=== PATIENT | male | born 1975 | race Caucasian/White ===

== ENCOUNTER 2022-09-21 11:25 | Outpatient (REF) | payer BC, SELFPAY ==
[2022-09-21 13:28] LABS: Alanine Aminotransferase 54 U/L (0-40); Albumin Level 4.6 g/dL (3.5-5.0); Alkaline Phosphatase 160 U/L (39-117); Amylase 29 U/L (28-100); Anion Gap 14 (12-20); Aspartate Amino Transferase 178 U/L (5-37); Bilirubin Total 2.6 mg/dL (0.0-1.0); Blood Urea Nitrogen 5 mg/dL (9-16); Calcium 9.6 mg/dL (8.4-10.2); Carbon Dioxide 29 mmol/L (22-29); Chloride 98 mmol/L (96-108); Estimated Glomerular Filt Rate > 60; Gamma Glutamyl Transpeptidase 1777 U/L (11-51); Glucose Random 104 mg/dL (60-115); Lipase 26 U/L (8-78); Magnesium 1.5 mg/dL (1.6-2.6); Potassium 4.1 mmol/L (3.3-5.1); Sodium 137 mmol/L (135-145)
[2022-09-27 16:38] LABS: Vitamin B1 <6 nmol/L (8-30)
== END 2022-09-21 11:26 | disposition home or self-care (01) ==
LOC: HO.MANLDS 11:25
PROVIDERS: Visit Provider Physician Assistant
DX: F10.20 Alcohol dependence, uncomplicated (principal)
CPT/HCPCS: 36415; 80053; 82150; 82977; 83690; 83735; 84425

== ENCOUNTER 2022-10-15 12:04 | Outpatient (REF) | payer BC, SELFPAY ==
[2022-10-19 23:00] LABS: Testosterone, Free 83.2 pg/mL (35.0-155.0); Testosterone, Total 504 ng/dL (250-1100)
== END 2022-10-15 12:05 | disposition home or self-care (01) ==
LOC: HO.MANLDS 12:04
PROVIDERS: Visit Provider Physician Assistant
DX: F52.21 Male erectile disorder (principal)
CPT/HCPCS: 36415; 84402; 84403

== ENCOUNTER 2023-09-01 17:03 | Inpatient (IN) | payer BC, SELFPAY ==
--- NOTE | ~2023-09-01 | US_ITS ---
US ABDOMEN LIMITED HISTORY: Ascites, ascites check for paracentesis. COMPARISON: Abdomen ultrasound 11/30/2023. TECHNIQUE: Grayscale ultrasound imaging of the abdomen was performed in all 4 quadrants. FINDINGS: Only a small amount of hypoechoic to anechoic ascites is evident within the peritoneal cavity, far too small to be considered safe for paracentesis. Estimate less than 1 L. US/US abdomen limited pre post IMPRESSION: Insufficient amount of ascites for safe paracentesis. Estimated last than 1 L. Paracentesis will be postponed until there is adequate amount of ascites for safe a procedure.
--- NOTE | ~2023-09-01 | US_ITS ---
Examination: Chest x-ray and ultrasound abdomen. CLINICAL INDICATION: August obstruction. Cough. COMPARISON: Chest 09/01/2023. TECHNIQUE: Chest one view. Routine limited grayscale imaging of right upper quadrant was performed. FINDINGS: Chest: There is right basilar patchy consolidation/atelectasis. There is bandlike atelectasis in left midlung and lower lobe. Heart size is normal. Pulmonary vasculature is normal. No gross bony abnormality seen. Limited abdomen ultrasound: Pancreas: Visualized pancreatic body is homogeneous echotexture. Rest the pancreas is obscured by or lying gas. Liver: Liver is echogenic, heterogeneous and difficult to penetrate. No large lesion seen. Liver is is enlarged measuring 17 cm. On Doppler exam there is hepatopedal flow seen in portal vein hepatic vein is patent. There is small amount ascites. Gallbladder: There is echogenic bile with mild wall thickening measuring 6 mm. There is minimal free fluid adjacent to the gallbladder. CBD: CBD measures 0.3 cm. Right kidney measures 12.3 cm. US/US abdomen limited IMPRESSION: Echogenic bile with mild wall thickening and adjacent free fluid/ascites. Heterogeneous echogenic liver difficult to penetrate but no obvious focal lesion seen. There is small amount of free fluid in the right upper quadrant. Hepatopedal flow seen in portal vein. Right lower lobe consolidation/atelectasis. There is platelike atelectasis in the lingula and left lower lobe.
--- NOTE | ~2023-09-01 | CT_ITS ---
EXAMINATION: CT ABDOMEN AND PELVIS WITH CONTRAST CLINICAL INFORMATION: abd distension, jaundice, RUQ pain, etoh use dx COMPARISON: None. TECHNIQUE: Multidetector volumetric imaging was performed from the superior aspect of the liver through the pubic symphysis following administration of 85 mL Omnipaque 300 intravenous contrast. Sagittal and coronal reformatted images were obtained on the technologist workstation.. This CT examination was performed using dose optimization techniques as appropriate, variously including the following: *Automated exposure control *Adjustment of mA and/or kV according to patient size (this includes techniques or standardized protocols for targeted exams where dose is matched to indication/reason for exam; i.e. extremities or head) *Use of iterative reconstruction technique DLP: 1528 mGy-cm FINDINGS: LUNG BASES: Patchy airspace disease in the right greater than left lung bases. Atelectasis would be possible although infectious etiology could have this appearance. Clinical correlation would be suggested. PERITONEAL SPACE: Small volume of abdominal ascites LIVER, GALLBLADDER, AND BILIARY TREE: Enlarged liver with a marked areas of fatty infiltration admixed with areas of probable confluent scarring. I do not appreciate any definitive mass lesion superimposed on these more chronic changes. No biliary ductal dilatation. The gallbladder is unremarkable with no evidence of radiopaque gallstones, gallbladder wall thickening, or obvious pericholecystic inflammatory changes. PANCREAS: Unremarkable. SPLEEN: Unremarkable. ADRENAL GLANDS: Unremarkable. KIDNEYS AND URETERS: The kidneys are normal in size, shape, and attenuation. No hydronephrosis, hydroureter, or perinephric stranding. Tiny nonobstructing intrarenal calculi on the left. Subcentimeter low-attenuation probable cysts bilaterally too small to evaluate further. BLADDER: Decompressed GASTROINTESTINAL TRACT: The small and large bowel are unremarkable. The appendix is is not able to be delineated.. ABDOMINAL WALL: No significant hernia is appreciated. LYMPHOVASCULAR STRUCTURES: No lymphadenopathy. The aorta is unremarkable. PELVIC VISCERA: Unremarkable. OSSEOUS STRUCTURES: Unremarkable. CT/CT abdomen pelvis w IV con IMPRESSION: Chronic appearing changes as described above. I do not appreciate any acute intra-abdominal process. Patchy airspace disease in the right greater than left lung bases could be seen in the setting of atelectasis or infectious etiology.
--- NOTE | ~2023-09-01 | CT_ITS ---
EXAMINATION: CT HEAD WITHOUT CONTRAST CLINICAL INFORMATION: Confusion. COMPARISON: None available. TECHNIQUE: Contiguous axial imaging was performed from the skull base to vertex without intravenous administration of contrast. This CT examination was performed using dose optimization techniques as appropriate, variously including the following: *Automated exposure control *Adjustment of mA and/or kV according to patient size (this includes techniques or standardized protocols for targeted exams where dose is matched to indication/reason for exam; i.e. extremities or head) *Use of iterative reconstruction technique DLP: 1528 mGy-cm FINDINGS: There is no acute intra-axial, extra-axial bleed, masses or midline shift. There is no acute infarction in evolution. There is no edema. The rice to white matter differentiation is maintained normal. The lateral ventricles are symmetrical in size and configuration and appears normal. Bone windows reveal no calvarial abnormality. There is no soft tissue abnormality. Bilateral paranasal sinuses and mastoid air cells are well-aerated. CT/CT head/brain wo IV con IMPRESSION: No acute intracranial process seen.
--- NOTE | ~2023-09-01 | XR_ITS ---
EXAMINATION: XR CHEST CLINICAL INFORMATION: Patchy opacities COMPARISON: CT abdomen from 09/01/2023 TECHNIQUE: Frontal view of the chest was obtained. FINDINGS: Right lung base patchy consolidative opacities may reflect atelectasis versus evolving infectious/inflammatory etiology. No pneumothorax. Trachea is midline. Cardiac mediastinal silhouette is not enlarged. No large pleural effusion. Osseous structures are intact. Soft tissues are unremarkable. XR/XR chest 1V IMPRESSION: Right lung base patchy consolidative opacities may reflect atelectasis versus evolving infectious/inflammatory etiology.
[2023-09-01 17:36] VITALS: BP 119/74; BP 122/84; PULSE 118; RESP 20; TEMP 36.9; O2SAT 93; O2SAT 98; BMI 27.9
--- NOTE | 2023-09-01 17:54 | ED.GENADULT ---
HPI - General Adult General Chief complaint: Abdominal Pain Stated complaint: JAUNDICE DISTENTION & KNOWN HERNIA CONSTIPATION Time Seen by Provider: 09/01/23 17:54 Source: patient, family and RN notes reviewed Mode of arrival: ambulatory Limitations: no limitations History of Present Illness HPI narrative: This is a 47-year-old male, with a history of known umbilical hernia, alcohol use disorder, and diverticulitis, presenting to the emergency department, accompanied by , for evaluation of abdominal pain x2 weeks, increased confusion, and abdominal distention over the last 5 days. states that she noticed that he had increased yellowing of his eyes over the last 3 days. Reports that he has seemed more confused starting today. He states that he has not had a bowel movement in the last 5 days. Patient does admit that he drinks alcohol daily. States that he drinks approximately half a pt of hard liquor every day, which he has been doing all of my life . He reports history of alcohol withdrawal, no history of alcohol withdrawal seizures. He has never had treatment for alcohol use, but is interested in seeking help at this time. He is not on blood thinners, no recent head trauma or falls. Denies any fevers, chills, chest pain, shortness of breath. He states that he has vomited however states that he vomits typically once a day. Denies any bloody or black stool. No other complaints or concerns at this time. MD complaint: Abdominal pain, jaundice, confusion Onset (ago): day(s) Relieving factors: none Exacerbating factors: none Associated symptoms: confusion and nausea/vomiting Treatments prior to arrival: none Related Data Previous Rx's Medication Instructions Recorded flu vac qv 2020(18yr up)rc(PF) 180 0.5 ml IM ONCE 1 day #0.5 mL 06/15/21 mcg(45 mcgx4)/0.5 mL IM syringe metoprolol succinate 25 mg 25 mg PO DAILY #90 tabs 02/28/23 tablet,extended release 24 hr Allergies Allergy/AdvReac Type Severity Reaction Status Date / Time No Known Allergies Allergy Verified 05/03/23 13:15 Review of Systems Review of Systems: Yes all other systems are reviewed and are negative Constitutional: Constitutional: Reports as per [facility] Past Medical History Medical History (Updated 09/01/23 @ 21:00 by FABIOLA De Santiago) Lumbar radiculopathy Surgical History (Updated 05/03/23 @ 13:15 by Hilda Mendieta) History of left knee surgery History of back surgery Family History Family History (System 05/03/23 @ 13:15 by Hilda Mendieta) Father No problems noted. Mother No problems noted. Brother No problems noted. Sister No problems noted. Social History Social History (System 05/03/23 @ 13:15 by Hilda Mendieta) Advance Directives: No Advance Directives Information Provided: No Physical Exam ED Vital Signs: Vital Signs - 24 hr 09/01/23 17:36 09/01/23 18:40 Temperature 98.5 F 98.5 F Pulse Rate 118 H 120 H Respiratory Rate 20 22 H Blood Pressure 119/74 Pulse Oximetry 93 94 Oxygen Delivery Method Room Air Nasal Cannula Oxygen Flow Rate 2 BMI result Body Mass Index 27.9 Const General: cooperative, comfortable and no acute distress Orientation/consciousness: patient oriented x3 Limitations: no limitations HENMT Head: Yes normal to inspection, Yes normocephalic and Yes atraumatic Ears: hearing grossly normal bilaterally General nose exam: Normal external nose present Face and sinus: Yes normal facial exam Mouth: Normal oral and palatal mucosa present, oropharynx normal and moist mucous membranes Throat: Yes posterior oropharynx normal Eyes Other: Sclera icterus General: appearance normal, both eyes and all related structures Eyelids: Yes eyelids normal Conjunctivae: conjunctivae normal Sclerae: sclerae normal Pupils: Equal, round and reactive pupils present EOM: EOMs intact bilaterally Neck Neck: Yes normal visual inspection, Yes full ROM and Yes no lymphadenopathy Lymphatic: no lymphadenopathy noted Chest Chest palpation & inspection: normal inspection of the chest Resp Effort & Inspection: normal respiratory effort and able to speak in complete sentences Auscultation: clear to auscultation bilaterally, no crackles, no rales, no rhonchi and no wheezes Cardio Rate: regular rate Rhythm: regular rhythm Heart sounds: S1 normal heart sound present and S2 normal heart sound present GI Other: Abdomen is distended, and firm, hypoactive bowel sounds present, no visible hernia present. Tender in the right upper quadrant Inspection: Yes normal to inspection and Yes distended Skin General skin exam: no rashes or lesions noted Trauma: no lacerations or abrasions Wounds: no wounds Neuro Other: No upper or lower asterixis General: patient oriented x3 and moves all extremities Cranial nerves: Yes Equal, round and reactive pupils present Extrem General: Yes normal to inspection Right upper extremity: normal to inspection Left upper extremity: normal to inspection Right lower extremity: normal to inspection Left lower extremity: normal to inspection Course Reevaluation(s) Reevaluation #1: Patient remains comfortable and stable however chemistry returns, significant for total bili of 8.9, direct bili 7.2, AST 176, as well as alk-phos elevation at 2:51 a.m. and ammonia at 66. Findings concerning for alcoholic hepatitis, will administer lactulose. Ethyl alcohol 408, will start IV phenobarbital prevent alcoholic withdrawal. Pending CT head and CT abdomen. Time: 19:56 Reevaluation #2: CT head revealing no acute intracranial process. CT of the abdomen shows a chronic appearing changes including an enlarged liver with marked areas of fatty infiltration with areas of probable confluence scarring. No appreciable definitive mass lesion. Gallbladder is unremarkable with no evidence of radiopaque gallstones, gallbladder thickening or pericholecystic inflammatory changes. Discussed case with Dr. Ferrell transfer of care initiated as patient needs to be admitted for acute alcoholic hepatitis. Time: 20:51 Medications Administered Discontinued Medications Generic Name Dose Route Start Last Admin Trade Name Freq PRN Reason Stop Dose Admin Thiamine HCl 200 mg/ Sodium 102 mls @ 204 mls/hr 09/01/23 19:29 09/01/23 20:04 Chloride IV 09/01/23 19:58 204 mls/hr ONCE ONE Administration Iohexol 100 ml 09/01/23 19:33 09/01/23 19:35 Iohexol 350 Mg/Ml 100 Ml Infus..Btl IV 09/01/23 19:34 85 ml ONCE ONE Administration Lactulose 20 gm 09/01/23 19:32 09/01/23 20:07 Lactulose 20 Gm/30 Ml Solution PO 09/01/23 19:33 20 gm ONCE ONE Administration Medical Decision Making Medical Decision Making MDM Narrative: This is a 47-year-old male, with a history of alcohol use disorder, known umbilical hernia, and htn, presenting to the emergency department with complaints of abdominal pain times 2 weeks, worsening over the last day. He also appears to have worsening jaundice starting today. states that patient has been increasingly confused. He drinks alcohol daily, approximates half a pt per day. On arrival, tachycardic 118 beats per minute, all other vital signs within normal limits. Patient is afebrile, neurologically intact, no UE or LE asterixis. He is alert and oriented x4. Abdomen is distended and firm, with tenderness palpation in the epigastrium and right upper quadrant. Differential diagnoses include: alcoholic hepatitis, cholecystitis, cholangitis, hepatic encephalopathy, hepatitis, portal vein thrombosis. plan: labs, UA, CT abd & pelvis w/ contrast Differential Diagnosis Differential Diagnoses: The differential diagnosis associated with the presentation includes See above Admission/Observation Consideration of admission/observation: Escalation of care including admission/observation considered Consult Healthcare Provider Management of the patient was discussed with: Hospitalist Dr. Ferrell Lab Data MDM Lab Attestation statement: I reviewed the patient's lab results. Slight leukocytosis noted at 11.3, normocytic anemia noted with a hemoglobin and hematocrit at 11.8/32.7, prolonged coags noted, creatinine not indicative of JEAN MARIE, total bili 8.9, direct bili 7.2, AST 176, alk phos 251, ammonia 66, albumin 2.9. Ethyl alcohol critically high at 408. 09/01/23 18:37 09/01/23 18:37 Labs: Lab Results 09/01/23 09/01/23 Range/Units 18:37 20:10 WBC 11.3 H (4.8-10.8) X10*3/uL RBC 3.36 L (4.60-5.80) X10*6/uL Hgb 11.8 L (14.0-18.0) g/dl Hct 32.7 L (42.0-52.0) % MCV 97.3 (80.0-98.0) fL MCH 35.1 H (27.0-33.0) pg MCHC 36.1 H (31.0-36.0) g/dl RDW 15.9 (11.0-16.0) % Plt Count 179 (160-400) X10*3/uL MPV 11.9 (9.4-12.4) fL Immature Gran % (Auto) 0.5 H (0.0-0.4) % Neut % (Auto) 64.3 (45-73) % Lymph % (Auto) 19.9 L (20-40) % [place] % (Auto) 14.3 H (2-11) % Eos % (Auto) 0.3 (0-4) % Baso % (Auto) 0.7 (0-2) % Lymph # (Auto) 2.3 (1.2-4.9) X10*3/uL [place] # (Auto) 1.6 H (0.1-1.2) X10*3/uL Eos # (Auto) 0.0 (0.0-0.4) X10*3/uL Baso # (Auto) 0.1 (0.0-0.2) X10*3/uL Abs Immat Gran (auto) 0.06 H (0.00-0.03) X10*3/uL Absolute Neuts (auto) 7.3 (2.0-8.3) x10*3/uL Absolute Nucleated RBC 0.000 (0.0-0.012) X10*3/uL Nucleated RBC % (auto) 0.0 (0.0-0.2) /100WBC Smear Tech's Comments VERIFIED PT 19.0 H (11.1-13.3) SEC INR 1.6 H (0.9-1.1) Sodium 136 (135-145) mmol/L Potassium 3.5 (3.3-5.1) mmol/L Chloride 92 L (96-108) mmol/L Carbon Dioxide 28 (22-29) mmol/L Anion Gap 20 (12-20) BUN 3 L (9-16) mg/dL Creatinine 0.57 (0.5-1.4) mg/dL Estim Creat Clear Calc 182.9 Estimated GFR > 60 Random Glucose 107 (60-115) mg/dL Calcium 7.9 L D (8.4-10.2) mg/dL Magnesium 2.3 (1.6-2.6) mg/dL Total Bilirubin 8.9 H (0.0-1.0) mg/dL Direct Bilirubin 7.2 H (0.0-0.5) mg/dL AST 176 H (5-37) U/L ALT 22 (0-40) U/L Alkaline Phosphatase 251 H (39-117) U/L Ammonia 66 H (13-55) umol/L Total Protein 7.2 (6.5-8.0) g/dL Albumin 2.9 L (3.5-5.0) g/dL Lipase 24 (8-78) U/L Ethyl Alcohol 408 H* mg/dL Independent Interpretation I performed an independent interpretation of an: CT Scan Radiology Impression Discussion of test interpretation with radiology: I have reviewed the radiologist's reading. Radiologist Impression: EXAMINATION: CT HEAD WITHOUT CONTRAST CLINICAL INFORMATION: Confusion. COMPARISON: None available. TECHNIQUE: Contiguous axial imaging was performed from the skull base to vertex without intravenous administration of contrast. This CT examination was performed using dose optimization techniques as appropriate, variously including the following: *Automated exposure control *Adjustment of mA and/or kV according to patient size (this includes techniques or standardized protocols for targeted exams where dose is matched to indication/reason for exam; i.e. extremities or head) *Use of iterative reconstruction technique DLP: 1528 mGy-cm FINDINGS: There is no acute intra-axial, extra-axial bleed, masses or midline shift. There is no acute infarction in evolution. There is no edema. The rice to white matter differentiation is maintained normal. The lateral ventricles are symmetrical in size and configuration and appears normal. Bone windows reveal no calvarial abnormality. There is no soft tissue abnormality. Bilateral paranasal sinuses and mastoid air cells are well-aerated. CT/CT head/brain wo IV con IMPRESSION: No acute intracranial process seen. Dictated By: Richard Miller MD EXAMINATION: CT ABDOMEN AND PELVIS WITH CONTRAST CLINICAL INFORMATION: abd distension, jaundice, RUQ pain, etoh use dx COMPARISON: None. TECHNIQUE: Multidetector volumetric imaging was performed from the superior aspect of the liver through the pubic symphysis following administration of 85 mL Omnipaque 300 intravenous contrast. Sagittal and coronal reformatted images were obtained on the technologist workstation.. This CT examination was performed using dose optimization techniques as appropriate, variously including the following: *Automated exposure control *Adjustment of mA and/or kV according to patient size (this includes techniques or standardized protocols for targeted exams where dose is matched to indication/reason for exam; i.e. extremities or head) *Use of iterative reconstruction technique DLP: 1528 mGy-cm FINDINGS: LUNG BASES: Patchy airspace disease in the right greater than left lung bases. Atelectasis would be possible although infectious etiology could have this appearance. Clinical correlation would be suggested. PERITONEAL SPACE: Small volume of abdominal ascites LIVER, GALLBLADDER, AND BILIARY TREE: Enlarged liver with a marked areas of fatty infiltration admixed with areas of probable confluent scarring. I do not appreciate any definitive mass lesion superimposed on these more chronic changes. No biliary ductal dilatation. The gallbladder is unremarkable with no evidence of radiopaque gallstones, gallbladder wall thickening, or obvious pericholecystic inflammatory changes. PANCREAS: Unremarkable. SPLEEN: Unremarkable. ADRENAL GLANDS: Unremarkable. KIDNEYS AND URETERS: The kidneys are normal in size, shape, and attenuation. No hydronephrosis, hydroureter, or perinephric stranding. Tiny nonobstructing intrarenal calculi on the left. Subcentimeter low-attenuation probable cysts bilaterally too small to evaluate further. BLADDER: Decompressed GASTROINTESTINAL TRACT: The small and large bowel are unremarkable. The appendix is is not able to be delineated.. ABDOMINAL WALL: No significant hernia is appreciated. LYMPHOVASCULAR STRUCTURES: No lymphadenopathy. The aorta is unremarkable. PELVIC VISCERA: Unremarkable. OSSEOUS STRUCTURES: Unremarkable. CT/CT abdomen pelvis w IV con IMPRESSION: Chronic appearing changes as described above. I do not appreciate any acute intra-abdominal process. Patchy airspace disease in the right greater than left lung bases could be seen in the setting of atelectasis or infectious etiology. Dictated By: Shreyas Pal MD Chronic Conditions Patient?s care impacted by: Other (Alcohol use disorder) Social Determinants Patient?s care significantly limited by Social Determinants of Health including: Alcoholism and drug addiction in family Critical Care Time Critical Care Time Critical Care Time: Yes Total Critical Care Time: 45 Attestation: I have personally provided critical care time exclusive of time spent on separately billable procedures. Time includes review of lab data, radiology results, discussion with consultants, and monitoring for potential decompensation. Intervention performed as documented. Discharge Plan Discharge Clinical Impression: Alcoholic hepatitis Patient Disposition: Admitted As Inpatient
[2023-09-01 18:40] VITALS: PULSE 120; RESP 22; TEMP 36.9; O2SAT 94
[2023-09-01 18:45] LABS: Basophils Absolute Auto 0.1 X10*3/uL (0.0-0.2); Basophils Percent Auto 0.7 % (0-2); Eosinophils Percent Auto 0.3 % (0-4); Hematocrit 32.7 % (42.0-52.0); Hemoglobin 11.8 g/dl (14.0-18.0); Imm Gran Abs Auto 0.06 X10*3/uL (0.00-0.03); Imm Gran Pct Auto 0.5 % (0.0-0.4); Lymphocytes Absolute Auto 2.3 X10*3/uL (1.2-4.9); Lymphocytes Percent Auto 19.9 % (20-40); MANUAL DIFF FLAG SCAN; Mean Corpuscular HGB Conc 36.1 g/dl (31.0-36.0); Mean Corpuscular Hemoglobin 35.1 pg (27.0-33.0); Mean Corpuscular Volume 97.3 fL (80.0-98.0); Mean Platelet Volume 11.9 fL (9.4-12.4); Monocytes Absolute Auto 1.6 X10*3/uL (0.1-1.2); Monocytes Percent Auto 14.3 % (2-11); Neutrophils Absolute Auto 7.3 x10*3/uL (2.0-8.3); Neutrophils Percent Auto 64.3 % (45-73); Platelet Count 179 X10*3/uL (160-400); Red Blood Count 3.36 X10*6/uL (4.60-5.80); Red Cell Distribution Width 15.9 % (11.0-16.0); SCAN SMEAR FLAG 1; White Blood Count 11.3 X10*3/uL (4.8-10.8)
[2023-09-01 18:50] LABS: Ammonia 66 umol/L (13-55)
[2023-09-01 18:58] LABS: Alanine Aminotransferase 22 U/L (0-40); Albumin Level 2.9 g/dL (3.5-5.0); Alkaline Phosphatase 251 U/L (39-117); Anion Gap 20 (12-20); Aspartate Amino Transferase 176 U/L (5-37); Bilirubin Direct 7.2 mg/dL (0.0-0.5); Bilirubin Total 8.9 mg/dL (0.0-1.0); Blood Urea Nitrogen 3 mg/dL (9-16); Calcium 7.9 mg/dL (8.4-10.2); Carbon Dioxide 28 mmol/L (22-29); Chloride 92 mmol/L (96-108); Creatinine Clr Calc Pharmacy 182.9; Estimated Glomerular Filt Rate > 60; Ethanol 408 mg/dL; Glucose Random 107 mg/dL (60-115); Lipase 24 U/L (8-78); Magnesium 2.3 mg/dL (1.6-2.6); Potassium 3.5 mmol/L (3.3-5.1); Sodium 136 mmol/L (135-145); Total Protein 7.2 g/dL (6.5-8.0)
[2023-09-01 19:01] LABS: SLIDE REVIEW VERIFIED
--- NOTE | 2023-09-01 19:20 | PC.NURSE ---
This financial underwriter assumed care of this Pt at 1900. Pt A&Ox3, denies any pain. Reports no BM in 5 days with no relief of meds taken at home. Reports he has a kidney stone and a ABD hernia. ABD is distended, sclera jaundice noted. Pt reports he noticed his eyes 4 days ago. Pt able to ambulate independently with steady gait. CIWA O. Pt placed on 2 L NC, destats to 89% on RA, denies any sleep apnea.
[2023-09-01] MEDS: iohexoL 350 MG/ML 100 ML INFUS..BTL IV (19:35)
[2023-09-01] MEDS: Thiamine HCL 200 MG in 0.9 % Sodium Chloride 100 ML 204 MG IV (20:04)
[2023-09-01] MEDS: Lactulose 20 GM/30 ML SOLUTION PO (20:07)
[2023-09-01 20:28] LABS: INTERNATIONAL NORM RATIO 1.6 (0.9-1.1)
--- NOTE | 2023-09-01 21:49 | P.HPHOSP_ITS ---
History of Present Illness Date of Service: 09/01/23 Attending physician on admission: Fatuma Ferrell Chief Complaint: jaundice, confusion 47-year-old male with history of hyperlipidemia, hypertension, asthma, anxiety, alcohol use disorder, and umbilical hernia presented to the ED earlier today for evaluation of diffuse abdominal discomfort and bloating ongoing for about 2 weeks with constipation as well as confusion noted today by his . They have also noted increased yellowing of the eyes over the last 3 days. The patient reports that he is been drinking alcohol in excess for many years and has been trying to cut back. However he is still drinking estimated 5-6 alcoholic beverages per day though he does not measure the amount of vodka consumed. 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 Last etoh was around noon today. He does experience withdrawal symptoms including shakes but denies any history of alcohol withdrawal seizure and has never been confused prior to today following alcohol use. Denies any fevers, chills, recent illness, nausea, vomiting, tremors currently, headache, hallucinations, lightheadedness, shortness of breath, chest pain. He has not moved his bowels in 5 days. He does desire detox. On arrival, pt tachcyardic to 120, vitals otherwise stable. MIld leukocytosis 11.3. Mild normocytic anemia H/H 11.8/32.7%. Renal function/lytes normal except chloride 92. Total bili 8.9, direct bili 7.2, AST 176, ALT 22. Alk phos 251. Ammonia 66. Ethyl etoh 406. Head CT negative for any acute intracranial abnormality. CT abdomen/pelvis shows chronic appearing changes with enlarged liver and marked areas of fatty infiltration admixed with areas of probable confluence scarring but no definitive mass lesion superimposed on the chronic changes. No biliary ductal dilatation. Incidentally seen is patchy airspace disease in the right greater than left lung bases possibly related to atelectasis versus infectious etiology. Review of Systems 2 Review of Systems: General: No fevers, malaise, unintentional weight loss HEENT: No blurred vision, diplopia. No sore throat, nasal congestion, rhinorrhea, sinus pain, ear pain Cardiovascular: No chest pain, palpitations, or leg edema Respiratory: No shortness of breath, wheezing, cough GI: +abd pain, +abd bloating, +constipation. No nausea, vomiting, diarrhea, melena, hematochezia : No dysuria, hematuria, increased urinary frequency, decreased urinary output MSK: No myalgia, back pain Neuro: No headaches, weakness, paresthesias. +confusion Skin: No rashes or lesions. +jaundice [facility] Medical History Umbilical hernia Asthma Anxiety HTN (hypertension) Alcohol dependence Hyperlipidemia Lumbar radiculopathy Family History Father No problems noted. Mother No problems noted. Brother No problems noted. Sister No problems noted. Surgical History History of left knee surgery History of back surgery Social History Advance Directives: No Advance Directives Information Provided: No Meds Allergies Allergy/AdvReac Type Severity Reaction Status Date / Time No Known Allergies Allergy Verified 05/03/23 13:15 Active Medications: Current Medications Acetaminophen (Acetaminophen 325 Mg Tablet) 650 mg PO Q6H PRN PRN Reason: Pain, Mild (Pain Scale 1-3) Heparin Sodium (Porcine) (Heparin Sodium,Porcine 5,000 Unit/Ml Vial) 5,000 unit SUBCUT Q12H [facility] Thiamine HCl 100 mg/ Sodium (Chloride) 101 mls @ 202 mls/hr IV DAILY [facility] Folic Acid 1 mg/ Sodium (Chloride) 50.2 mls @ 100.4 mls/hr IV DAILY [facility] Stop: 09/04/23 09:29 Ondansetron HCl (Ondansetron Hcl 4 Mg/2 Ml Vial) 4 mg IVPUSH Q8H PRN PRN Reason: Nausea and Vomiting Pharmacy Consult (Consult Rx Etoh Phenob Im/Po) 1 each MISCELLANE ONCE PRN; Protocol PRN Reason: Consult order Phenobarbital (Phenobarbital 15 Mg Tablet) 45 mg PO BID [facility] Stop: 09/04/23 09:01 Phenobarbital (Phenobarbital 15 Mg Tablet) 15 mg PO BID [facility] Stop: 09/06/23 09:01 Phenobarbital (Phenobarbital 15 Mg Tablet) 15 mg PO DAILY [facility] Stop: 09/08/23 09:01 Phenobarbital Sodium (Phenobarbital Sodium 130 Mg/Ml Vial Im Q3hx2) 219 mg IM Q3H [facility] Stop: 09/02/23 03:01 Prednisone (Prednisone 20 Mg Tablet) 40 mg PO DAILY [facility] Senna (Sennosides 8.6 Mg Tablet) 17.2 mg PO BEDTIME PRN PRN Reason: Constipation Sodium Chloride (0.9 % Sodium Chloride Flush 3 Ml Syringe) 3 ml IVFLUSH QSHIFT [facility] Physical Exam 2 Vital Signs and Narrative: Vital Signs: Last Vital Signs Temp 98.5 F 09/01/23 18:40 Pulse 120 H 09/01/23 18:40 Resp 22 H 09/01/23 18:40 BP 119/74 09/01/23 17:36 Pulse Ox 94 09/01/23 18:40 O2 Del Method Nasal Cannula 09/01/23 18:40 O2 Flow Rate 2 09/01/23 18:40 BMI result Body Mass Index 27.9 Constitutional - Awake and Alert, No apparent distress Eyes - PERRLA, EOMI Cardiovascular - S1S2, RRR, No edema Respiratory - Normal lung expansion, Normal respiratory effort, No respiratory distress, CTA bilaterally Gastrointestinal - moderate abd distension with diffuse ttp greatest in llq, +BS; No rebound or guarding Extremities - no calf tenderness bilaterally, no swelling Skin - Warm/Dry Neurological - Alert & oriented x3 Psychological - Appropriate affect Results Labs 09/01/23 18:37 09/01/23 18:37 Labs: Laboratory Results - last 24 hr 09/01/23 09/01/23 18:37 20:10 MCV 97.3 MCH 35.1 H MCHC 36.1 H RDW 15.9 Plt Count 179 MPV 11.9 Immature Gran % (Auto) 0.5 H Neut % (Auto) 64.3 Lymph % (Auto) 19.9 L [place] % (Auto) 14.3 H Eos % (Auto) 0.3 Baso % (Auto) 0.7 Lymph # (Auto) 2.3 [place] # (Auto) 1.6 H Eos # (Auto) 0.0 Baso # (Auto) 0.1 Abs Immat Gran (auto) 0.06 H Absolute Neuts (auto) 7.3 Absolute Nucleated RBC 0.000 Nucleated RBC % (auto) 0.0 Smear Tech's Comments VERIFIED PT 19.0 H INR 1.6 H Anion Gap 20 Estim Creat Clear Calc 182.9 Estimated GFR > 60 Random Glucose 107 Calcium 7.9 L D Magnesium 2.3 Total Bilirubin 8.9 H Direct Bilirubin 7.2 H AST 176 H ALT 22 Alkaline Phosphatase 251 H Ammonia 66 H Total Protein 7.2 Albumin 2.9 L Lipase 24 Ethyl Alcohol 408 H* Imaging Radiologist's Impressions: Impressions Abdomen/Pelvis CT 09/01/23 19:54 IMPRESSION: Chronic appearing changes as described above. I do not appreciate any acute intra-abdominal process. Patchy airspace disease in the right greater than left lung bases could be seen in the setting of atelectasis or infectious etiology. Head CT 09/01/23 19:54 IMPRESSION: No acute intracranial process seen. Assessment and Plan (1) Alcoholic hepatitis: Status: Acute (2) Alcohol dependence: Status: Acute Plan 47-year-old male with history of hyperlipidemia, hypertension, asthma, anxiety, alcohol use disorder, and umbilical hernia admitted for acute alcoholic hepatitis #Acute alcoholic hepatitis -total bili 8.9, direct bili 7.2. AST 176, ALT 22, Alk phos 251 -ct abd/pelvis showsing enlarged fatty liver with large areas of confluent scarring. No mass/lesion. No biliary ductal dilitation -MDF 36.5 -Prednisone 40mg daily -GI consult -alcohol cessation strongly advised -follow LFTs #Jaundice/coagulopathy -due to above #Acute hepatic encephalopathy- resovled on admission -due to above -given lactulose in ed. metnation baseline. hold on additional lactulose #Alcohol use disorder- at risk for withdrawal -Monitor on ciwa -phenobarbital per protocol -iv thiamine, iv folic acid -addiction med consult #Acute constipation -docusate BID, miralax daily -senna prn #Patchy opacities on ct abd/pelvis -asymptamatic -cxr ordered #Nomrocytic anemia- unclear chronicity -etiology unclear at this time -h/h above transfusion threshold -follow cbc #HTN -states he takes clonidine, but hold given soft blood pressures (does not appear has been picked up at the pharmacy since february- med rec pending) -monitor bp #Mild intermitent asthma -no acute exacerbation -albuterol prn dvt prophylaxis- scps, early ambulation full code given alcoholic hepatitis in pt with MDF 36.5 and who is at risk for moderate to severe etoh withdrawal pt will require inpt stay at least 2 midnights for steroid initiation, monitoring of hepatic funciton, phenobarbital per protocol, and expert consultation. Quality Stroke Does the patient have a stroke diagnosis?: No VTE Prior VTE?: No VTE Risk Level:: Medical - moderate - high VTE Device Contraindication: Treatment Not Indicated VTE Drug Contraindication: N/A - Med Ordered
[2023-09-01 22:00] VITALS: BP 134/76; PULSE 121; RESP 20; O2SAT 91
[2023-09-01] MEDS: Albumin Human 25 % 100 ML IV (22:01)
[2023-09-01 22:05] VITALS: O2SAT 94
[2023-09-01] MEDS: PHENobarbitaL sodium 130 MG/ML IM ONCE 292 MG IM (22:18)
[2023-09-01] MEDS: polyethylene glycoL 3350 17 GM POWD.PACK PO (22:20)
[2023-09-01] MEDS: Docusate Sodium 100 MG CAPSULE PO (22:20)
[2023-09-02] VITALS (9 sets, daily range): BP systolic 108–140; BP diastolic 63–92; PULSE 95–128; RESP 16–18; TEMP 36.6–37.1; O2SAT 91–94; BMI 28.7
[2023-09-02] MEDS: methylPREDNISolone Sod Succ 40 MG/ML VIAL IVPUSH (01:11)
[2023-09-02] MEDS: PHENobarbitaL sodium 130 MG/ML VIAL IM Q3Hx2 219 MG IM ×2 (01:11→03:51)
[2023-09-02] MEDS: 0.9 % Sodium Chloride Flush 3 ML SYRINGE IVFLUSH ×2 (01:12→23:49)
--- NOTE | 2023-09-02 03:02 | PC.NURSE ---
Med rec done, Pt able to verbalize home meds.
[2023-09-02 06:57] LABS: MANUAL DIFF FLAG NO
[2023-09-02 07:01] LABS: Basophils Absolute Auto 0.1 X10*3/uL (0.0-0.2); Basophils Percent Auto 0.7 % (0-2); Hematocrit 31.5 % (42.0-52.0); Hemoglobin 11.1 g/dl (14.0-18.0); Imm Gran Abs Auto 0.06 X10*3/uL (0.00-0.03); Imm Gran Pct Auto 0.7 % (0.0-0.4); Lymphocytes Absolute Auto 0.5 X10*3/uL (1.2-4.9); Lymphocytes Percent Auto 6.2 % (20-40); Mean Corpuscular HGB Conc 35.2 g/dl (31.0-36.0); Mean Corpuscular Hemoglobin 34.6 pg (27.0-33.0); Mean Corpuscular Volume 98.1 fL (80.0-98.0); Mean Platelet Volume 12.5 fL (9.4-12.4); Monocytes Absolute Auto 0.5 X10*3/uL (0.1-1.2); Monocytes Percent Auto 5.6 % (2-11); Neutrophils Absolute Auto 7.5 x10*3/uL (2.0-8.3); Neutrophils Percent Auto 86.8 % (45-73); Platelet Count 172 X10*3/uL (160-400); Red Blood Count 3.21 X10*6/uL (4.60-5.80); Red Cell Distribution Width 16.2 % (11.0-16.0); White Blood Count 8.7 X10*3/uL (4.8-10.8)
[2023-09-02 07:15] LABS: Alanine Aminotransferase 21 U/L (0-40); Alkaline Phosphatase 235 U/L (39-117); Anion Gap 17 (12-20); Aspartate Amino Transferase 172 U/L (5-37); Bilirubin Direct 7.2 mg/dL (0.0-0.5); Bilirubin Total 8.8 mg/dL (0.0-1.0); Blood Urea Nitrogen 4 mg/dL (9-16); Calcium 7.8 mg/dL (8.4-10.2); Carbon Dioxide 29 mmol/L (22-29); Chloride 91 mmol/L (96-108); Estimated Glomerular Filt Rate > 60; Glucose Random 116 mg/dL (60-115); Potassium 3.8 mmol/L (3.3-5.1); Sodium 133 mmol/L (135-145); Total Protein 7.1 g/dL (6.5-8.0)
--- NOTE | 2023-09-02 08:39 | PHA.MEDREC ---
Pharmacy Consult ? Medication Reconciliation Pharmacy has completed the medication reconciliation. Confirmed medications with patient.
[2023-09-02] MEDS: predniSONE 20 MG TABLET 40 MG PO (09:08)
--- NOTE | 2023-09-02 09:10 | HO.PM.IMPN ---
Subjective Subjective Date of Service: 09/02/23 Interval History: had bm, mentally improved Physical Exam Vital Signs: Vital Signs: Last Vital Signs Temp 98.4 F 09/02/23 07:25 Pulse 100 09/02/23 07:25 Resp 16 09/02/23 07:25 BP 112/71 09/02/23 07:25 Pulse Ox 92 09/02/23 07:36 O2 Del Method Room Air 09/02/23 07:36 O2 Flow Rate 2 09/02/23 07:25 BMI result Body Mass Index 28.7 General: AO X 3, no acute distress Resp: CTA bilateral, no accessory muscles used CVS: S1,S2,RRR GI: soft, non tender, non distended Neuro: motor grossly intact, alert Psych: appropriate affect, appropriate insight jaundiced Objective Data Active Medications Acetaminophen (Acetaminophen 325 Mg Tablet) 650 mg PO Q6H PRN PRN Reason: Pain, Mild (Pain Scale 1-3) Docusate Sodium (Docusate Sodium 100 Mg Capsule) 100 mg PO BID [facility] Last Admin: 09/01/23 22:20 Dose: 100 mg Documented By: MAEVE Thiamine HCl 100 mg/ Sodium (Chloride) 101 mls @ 202 mls/hr IV DAILY [facility] Folic Acid 1 mg/ Sodium (Chloride) 50.2 mls @ 100.4 mls/hr IV DAILY [facility] Stop: 09/04/23 09:29 Ondansetron HCl (Ondansetron Hcl 4 Mg/2 Ml Vial) 4 mg IVPUSH Q8H PRN PRN Reason: Nausea and Vomiting Pharmacy Consult (Consult Rx Etoh Phenob Im/Po) 1 each MISCELLANE ONCE PRN; Protocol PRN Reason: Consult order Phenobarbital (Phenobarbital 15 Mg Tablet) 45 mg PO BID [facility] Stop: 09/04/23 09:01 Phenobarbital (Phenobarbital 15 Mg Tablet) 15 mg PO BID [facility] Stop: 09/06/23 09:01 Phenobarbital (Phenobarbital 15 Mg Tablet) 15 mg PO DAILY [facility] Stop: 09/08/23 09:01 Polyethylene Glycol (Polyethylene Glycol 3350 17 Gm Powd.Pack) 17 gm PO DAILY [facility] Last Admin: 09/01/23 22:20 Dose: 17 gm Documented By: MAEVE Prednisone (Prednisone 20 Mg Tablet) 40 mg PO DAILY [facility] Last Admin: 09/02/23 09:08 Dose: 40 mg Documented By: WAYLON Sanders (Sennosides 8.6 Mg Tablet) 17.2 mg PO BEDTIME PRN PRN Reason: Constipation Sodium Chloride (0.9 % Sodium Chloride Flush 3 Ml Syringe) 3 ml IVFLUSH QSHIFT [facility] Last Admin: 09/02/23 01:12 Dose: 3 ml Documented By: GREG Labs 09/02/23 06:53 09/02/23 05:37 Labs: Laboratory Results - last 24 hr 09/01/23 09/01/23 09/02/23 18:37 20:10 05:37 MCV 97.3 MCH 35.1 H MCHC 36.1 H RDW 15.9 Plt Count 179 MPV 11.9 Immature Gran % (Auto) 0.5 H Neut % (Auto) 64.3 Lymph % (Auto) 19.9 L [place] % (Auto) 14.3 H Eos % (Auto) 0.3 Baso % (Auto) 0.7 Lymph # (Auto) 2.3 [place] # (Auto) 1.6 H Eos # (Auto) 0.0 Baso # (Auto) 0.1 Abs Immat Gran (auto) 0.06 H Absolute Neuts (auto) 7.3 Absolute Nucleated RBC 0.000 Nucleated RBC % (auto) 0.0 Smear Tech's Comments VERIFIED PT 19.0 H INR 1.6 H Anion Gap 20 17 Estim Creat Clear Calc 182.9 179.0 Estimated GFR > 60 > 60 Random Glucose 107 116 H Calcium 7.9 L D 7.8 L Magnesium 2.3 Total Bilirubin 8.9 H 8.8 H Direct Bilirubin 7.2 H 7.2 H AST 176 H 172 H ALT 22 21 Alkaline Phosphatase 251 H 235 H Ammonia 66 H Total Protein 7.2 7.1 Albumin 2.9 L 3.0 L Lipase 24 Ethyl Alcohol 408 H* 09/02/23 06:53 MCV 98.1 H MCH 34.6 H MCHC 35.2 RDW 16.2 H Plt Count 172 MPV 12.5 H Immature Gran % (Auto) 0.7 H Neut % (Auto) 86.8 H Lymph % (Auto) 6.2 L [place] % (Auto) 5.6 Eos % (Auto) 0.0 Baso % (Auto) 0.7 Lymph # (Auto) 0.5 L [place] # (Auto) 0.5 Eos # (Auto) 0.0 Baso # (Auto) 0.1 Abs Immat Gran (auto) 0.06 H Absolute Neuts (auto) 7.5 Absolute Nucleated RBC 0.000 Nucleated RBC % (auto) 0.0 Smear Tech's Comments PT INR Anion Gap Estim Creat Clear Calc Estimated GFR Random Glucose Calcium Magnesium Total Bilirubin Direct Bilirubin AST ALT Alkaline Phosphatase Ammonia Total Protein Albumin Lipase Ethyl Alcohol Assessment and Plan (1) Alcoholic hepatitis: Status: Acute Plan 47M PMH etoh dependence, htn, hld, anxiety presented with ams, jaundice Acute metabolic encephalopathy due to acute hepatic encephalopathy inpatient with acute alcoholic hepatitis complicated by alcohol withdrawal Continue prednisone 40 mg daily for elevated Maddrey score phenobarb gi eval monitor lfts mentation back to baseline htn holding clonidine for low normal bp mild intermittent ashtma stable dvt prophylaxis - mechanical due to coagulopathy full code reason for continued hospitalization: withdrawal Quality Stroke Does the patient have a stroke diagnosis?: No VTE Prior VTE?: No VTE Risk Level:: Medical - moderate - high VTE Device Contraindication: Treatment Not Indicated VTE Drug Contraindication: N/A - Med Ordered
[2023-09-02] MEDS: Thiamine HCL 100 MG in 0.9 % Sodium Chloride 100 ML 202 MG IV (09:15)
[2023-09-02 09:25] LABS: Appearance Urine Clear; Color Urine Orange; Leukocyte Esterase Urine Negative (Negative); PH 6.5 (5.0-9.0); UMIC TRIGGER UACC YES; Urine Blood Negative (Negative); Urine Ketones 40 mg/dL (Negative)
[2023-09-02 09:30] LABS: Bacteria Urine None Seen (None Seen); Hyaline Casts Urine 0-2 /LPF (0-2); Squamous Epithelial Cell Urine 0-2 /HPF (0-2); WBC Urine 0-5 /HPF (0-5)
[2023-09-02 09:34] LABS: Amphetamine Screen Urine Not Detected (Not Detect); Barbiturates, Urine POSITIVE (Not Detect); Benzodiazepines Screen Urine Not Detected (Not Detect); Cannabinoid Screen Urine Not Detected (Not Detect); Cocaine Screen Urine Not Detected (Not Detect); Fentanyl, urine Not Detected (Not Detect); Opiate Screen Urine Not Detected (Not Detect); Phencyclidine Screen Urine Not Detected (Not Detect)
--- NOTE | 2023-09-02 09:39 | MHC.CM.PN ---
PATIENT IS FROM HOME W/ . FUNCTIONALLY INDEPENDENT, NO SERVICES OR DME. PCP: JADEN RANDALL MD HCP: CM PROVIDED EDUCATION AND OFFERED ASSISTANCE, PATIENT DECLINED. DP: HOME SELF CARE, TO TRANSPORT VS CARE TEAM INTERVENTION FOR ETOH. CM WILL CONTINUE TO FOLLOW.
[2023-09-02 09:44] LABS: RBC Urine 0-2 /HPF (0-2)
--- NOTE | 2023-09-02 09:46 | P.CNGI_ITS ---
History of Present Illness Data of Consult Service Date: 09/02/23 Requesting physician: Asya Land Primary Care Provider: Marquise Fernando MD HPI Reason for consult: Alcoholic hepatitis This is a 38-year-old gentleman past medical history of alcohol use disorder, anxiety, hypertension, who presented to the hospital yesterday for abdominal pain and bloating and was found to have jaundice. Gastroenterology has been consulted for question of alcoholic hepatitis. History obtained from the patient, who states that he has been heavily drinking on and off for the past many years. Drink of choice is vodka mixed with Gatorade, and drinks at least 5-6 times daily. The past 1 week, his had been noticing worsening jaundice. The day of admission, was also starting to hallucinate which prompted his admission. In the emergency room, he was noted to be tachycardic with normal blood pressures. Mild hypoxia. Labs were significant for leukocytosis, INR 1.6, elevated LFTs and AST greater than ALT ratio. Total bili 07.2. CT abdomen and pelvis showed markedly enlarged liver with fatty changes. No bile duct dilation. Patient was admitted yesterday evening for alcoholic hepatitis and has been started on prednisone 40 mg for high MDF. he is also on the CIWA scale for impending alcohol withdrawal. Review of Systems 2 Review of Systems: Yes all other systems are reviewed and are negative [facility] Past Medical History Medical History Umbilical hernia Asthma Anxiety HTN (hypertension) Alcohol dependence Hyperlipidemia Lumbar radiculopathy Family History Family History Father No problems noted. Mother No problems noted. Brother No problems noted. Sister No problems noted. Surgical History Surgical History History of left knee surgery History of back surgery Social History Social History Household Members: Spouse Housing: House Do you presently have visiting nurse or other home services: No Alcohol intake: current Alcohol intake frequency: 0-2 drinks per day Comment: Refusing bed alarm. Patient Tobacco Use Status: Never used Tobacco Second Hand Smoke Exposure: No service: No Meds Allergies Allergy/AdvReac Type Severity Reaction Status Date / Time No Known Allergies Allergy Verified 09/02/23 02:17 Active Medications: Current Medications Acetaminophen (Acetaminophen 325 Mg Tablet) 650 mg PO Q6H PRN PRN Reason: Pain, Mild (Pain Scale 1-3) Docusate Sodium (Docusate Sodium 100 Mg Capsule) 100 mg PO BID [facility] Last Admin: 09/02/23 09:19 Dose: Not Given Thiamine HCl 100 mg/ Sodium (Chloride) 101 mls @ 202 mls/hr IV DAILY [facility] Last Admin: 09/02/23 09:15 Dose: 202 mls/hr Folic Acid 1 mg/ Sodium (Chloride) 50.2 mls @ 100.4 mls/hr IV DAILY [facility] Stop: 09/04/23 09:29 Ondansetron HCl (Ondansetron Hcl 4 Mg/2 Ml Vial) 4 mg IVPUSH Q8H PRN PRN Reason: Nausea and Vomiting Pharmacy Consult (Consult Rx Etoh Phenob Im/Po) 1 each MISCELLANE ONCE PRN; Protocol PRN Reason: Consult order Phenobarbital (Phenobarbital 15 Mg Tablet) 45 mg PO BID [facility] Stop: 09/04/23 09:01 Phenobarbital (Phenobarbital 15 Mg Tablet) 15 mg PO BID [facility] Stop: 09/06/23 09:01 Phenobarbital (Phenobarbital 15 Mg Tablet) 15 mg PO DAILY [facility] Stop: 09/08/23 09:01 Polyethylene Glycol (Polyethylene Glycol 3350 17 Gm Powd.Pack) 17 gm PO DAILY [facility] Last Admin: 09/02/23 09:19 Dose: Not Given Prednisone (Prednisone 20 Mg Tablet) 40 mg PO DAILY [facility] Last Admin: 09/02/23 09:08 Dose: 40 mg Senna (Sennosides 8.6 Mg Tablet) 17.2 mg PO BEDTIME PRN PRN Reason: Constipation Sodium Chloride (0.9 % Sodium Chloride Flush 3 Ml Syringe) 3 ml IVFLUSH QSHIFT [facility] Last Admin: 09/02/23 09:11 Dose: Not Given Home Medications Medication Instructions Recorded Confirmed Last Taken Type clonidine HCl 0.2 mg tablet 0.2 mg PO BID 09/02/23 09/02/23 09/01/23 History lorazepam 0.5 mg tablet (Ativan) 0.5 mg PO BID 09/02/23 09/02/23 09/01/23 History Physical Exam 2 Vital Signs: Vital Signs: Last Vital Signs Temp 98.4 F 09/02/23 07:25 Pulse 100 09/02/23 07:25 Resp 16 09/02/23 07:25 BP 112/71 09/02/23 07:25 Pulse Ox 92 09/02/23 07:36 O2 Del Method Room Air 09/02/23 07:36 O2 Flow Rate 2 09/02/23 07:25 BMI result Body Mass Index 28.7 Gen Appear: NAD, jaundiced HEENT: scleral icterus, no bitemporal wasting noted Chest: CTA CVS: Regular S1/S2 no murmurs Abd: soft, nontender, nondistended, hepatomegaly Ext: No peripheral edema bilaterally Neuro: A/Ox3, no asterixis, ++ fine temors Results Labs 09/02/23 06:53 09/02/23 05:37 Labs: Short CBC 09/01/23 09/02/23 Range/Units 18:37 06:53 WBC 11.3 H 8.7 (4.8-10.8) X10*3/uL Hgb 11.8 L 11.1 L (14.0-18.0) g/dl Hct 32.7 L 31.5 L (42.0-52.0) % Plt Count 179 172 (160-400) X10*3/uL BMP 09/01/23 09/02/23 18:37 05:37 Sodium 136 133 L Potassium 3.5 3.8 Chloride 92 L 91 L Carbon Dioxide 28 29 BUN 3 L 4 L Creatinine 0.57 0.59 Calcium 7.9 L D 7.8 L Liver Function 09/01/23 09/02/23 Range/Units 18:37 05:37 Total Bilirubin 8.9 H 8.8 H (0.0-1.0) mg/dL Direct Bilirubin 7.2 H 7.2 H (0.0-0.5) mg/dL AST 176 H 172 H (5-37) U/L ALT 22 21 (0-40) U/L Alkaline Phosphatase 251 H 235 H (39-117) U/L Albumin 2.9 L 3.0 L (3.5-5.0) g/dL Urine 09/02/23 Range/Units 09:14 Urine Color Transfer Urine Appearance Clear Urine pH 6.5 (5.0-9.0) Ur Specific [place] 1.020 (1.005-1.025) Urine Protein See Note (Neg-Trace) mg/dL Urine Glucose (UA) See Note (Negative) mg/dL Assessment and Plan (1) Alcohol dependence: Status: Acute (2) Alcoholic hepatitis: Status: Acute (3) Elevated transaminase level: Status: Acute Plan MDF 39.4. Overall presentation consistent with acute alcoholic hepatitis with ongoing severe alcohol use disorder. Plan: -Continue prednisone 40 (switch to prednisolone if available) PO daily -Will need day 4 Lille score to see if there is benefit to continue this for 4 weeks -Please check Hep A IgM and IgG, Hep B cAb/sAb/sAg, and Hep C Ab -Monitor MELD labs daily including bilirubin, INR, creatinine, sodium -No role for checking or trending ammonia, trend mental status clinically and check daily for asterixis -Abdominal ultrasound with doppler to assess for biliary obstruction, ascites, and portal or hepatic vein thrombus -Complete infectious work up with blood cultures -Nutrition goal >21kcal/kg/day and 1-1.5g/kg/day of protein- offer nutrition shakes TID to help meet this goal (mortality benefit) -[facility] protocol -Addiction medicine consult when pt able to participate -Avoid all NSAIDS Procedures Date of Service Date of Service: 09/02/23
[2023-09-02] MEDS: Folic Acid 1 MG in 0.9 % Sodium Chloride 50 ML 100.4 MG IV (10:25)
[2023-09-02] MEDS: cloNIDine HCL 0.2 MG TABLET PO (14:31)
--- NOTE | 2023-09-02 16:11 | MHC.RECOVRN ---
Met with pt in 360 after consult placed to Addiction Medicine for alcohol use. Pt had presented to the ED for AMS and abdominal pain. Upon evaluation, pt admitted for alcoholic hepatitis and AUD. Pt on phenobarbital protocol. Pt sitting in bed, awake, alert, easily engages in conversation, appears comfortable. Denies withdrawal symptoms. Pt reports alcohol use, 5-6 decent sized vodka and powerade drinks daily x years and years and years, last drink prior to presentation. Pt reports this is first alcohol related hospitalization. Pt denies hx tx for AUD, however, does report he was prescribed naltrexone by PCP in May and took it for about a week. Pt reports it did have positive effect. Pt interested in restarting ROSANNA. Pts goal is abstinence. 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 Pt reports he drinks after work, however, will begin drinking in the mornings on weekends. Pt reports father had AUD. Discussed recovery support options including inpatient, outpatient, ROSANNA, recovery coaching, etc. Pt is interested in initiating care at the [facility]. Pt would like to present as walk in to [facility] immediately upon dc from [facility]. Pt provided with written resources as well as t/w contact information if needed. Discussed with pts RN as well as CCC RN. Plan for pt to present to [facility] as a walk in immediately after discharge.
[2023-09-02] MEDS: PHENobarbitaL 15 MG TABLET 45 MG PO (20:10)
--- NOTE | 2023-09-02 22:07 | PM.EVENT ---
Event Note Date of Service: 09/02/23 Event Note: Repeat CXR ordered. Pt will mild sob with O2 sats around 92%. CXR on my review shows elevated hemidiaphragm with possible atelectasis. Low suspicion for infectious etiology- no cough, fevers, leukocytosis. U/S abd ordered to eval for ascites which could be contributory. (Also to eval for biliary obstruction, portal/hepatic vein thrombosis per GI recommendation) results pending. Recommend incentive spirometry at this time. Time Spent With Patient Time: Total time managing care of this patient today ____ minutes.
[2023-09-02] MEDS: cefTRIAXone sodium 1 GM in 0.9 % Sodium Chloride 50 ML IV (23:48)
[2023-09-03] MEDS: Doxycycline Hyclate 100 MG in 0.9 % Sodium Chloride 250 ML 166.67 MG IV ×3 (00:29→23:58)
[2023-09-03 03:20] VITALS: BP 124/77; PULSE 88; RESP 14; TEMP 36.4; O2SAT 97
[2023-09-03 06:15] LABS: Alanine Aminotransferase 26 U/L (0-40); Albumin Level 3.1 g/dL (3.5-5.0); Alkaline Phosphatase 268 U/L (39-117); Anion Gap 14 (12-20); Aspartate Amino Transferase 204 U/L (5-37); Bilirubin Direct 8.6 mg/dL (0.0-0.5); Bilirubin Total 10.7 mg/dL (0.0-1.0); Blood Urea Nitrogen 7 mg/dL (9-16); Calcium 8.6 mg/dL (8.4-10.2); Carbon Dioxide 32 mmol/L (22-29); Chloride 92 mmol/L (96-108); Creatinine Clr Calc Pharmacy 170.4; Estimated Glomerular Filt Rate > 60; Glucose Fasting 89 mg/dL (60-99); Potassium 3.5 mmol/L (3.3-5.1); Sodium 134 mmol/L (135-145); Total Protein 7.3 g/dL (6.5-8.0)
[2023-09-03 06:29] LABS: Hematocrit 35.9 % (42.0-52.0); Hemoglobin 12.6 g/dl (14.0-18.0); Mean Corpuscular HGB Conc 35.1 g/dl (31.0-36.0); Mean Corpuscular Hemoglobin 34.7 pg (27.0-33.0); Mean Corpuscular Volume 98.9 fL (80.0-98.0); Mean Platelet Volume 12.8 fL (9.4-12.4); Platelet Count 188 X10*3/uL (160-400); Red Blood Count 3.63 X10*6/uL (4.60-5.80); White Blood Count 13.3 X10*3/uL (4.8-10.8)
[2023-09-03 07:09] LABS: INTERNATIONAL NORM RATIO 1.8 (0.9-1.1); Prothrombin Time 21.6 SEC (11.1-13.3)
[2023-09-03 07:50] VITALS: BP 139/86; PULSE 113; RESP 20; TEMP 36.7; O2SAT 93
[2023-09-03] MEDS: cloNIDine HCL 0.2 MG TABLET PO ×2 (07:51→21:03)
[2023-09-03] MEDS: PHENobarbitaL 15 MG TABLET 45 MG PO ×2 (07:51→21:03)
[2023-09-03] MEDS: prednisoLONE sodium phosphate 15 MG/5 ML SOLUTION 40 MG PO (07:52)
[2023-09-03] MEDS: Folic Acid 1 MG in 0.9 % Sodium Chloride 50 ML 100.4 MG IV (09:08)
[2023-09-03] MEDS: 0.9 % Sodium Chloride Flush 3 ML SYRINGE IVFLUSH ×2 (09:11→23:59)
--- NOTE | 2023-09-03 09:15 | P.PNIM_ITS ---
Subjective Subjective Date of Service: 09/03/23 Interval History: reports feeling better, solid stools Physical Exam 2 Vital Signs: Vital Signs: Last Vital Signs Temp 98.1 F 09/03/23 07:50 Pulse 113 H 09/03/23 07:50 Resp 20 09/03/23 07:50 BP 139/86 09/03/23 07:50 Pulse Ox 93 09/03/23 07:50 O2 Del Method Room Air 09/03/23 07:50 O2 Flow Rate 2 09/02/23 07:25 BMI result Body Mass Index 28.7 General: AO X 3, no acute distress, jittery, jaundiced Resp: CTA bilateral, no accessory muscles used CVS: S1,S2,RRR GI: soft, non tender, non distended Neuro: motor grossly intact, alert Psych: appropriate affect, appropriate insight Objective Data Active Medications Acetaminophen (Acetaminophen 325 Mg Tablet) 650 mg PO Q6H PRN PRN Reason: Pain, Mild (Pain Scale 1-3) Clonidine HCl (Clonidine Hcl 0.2 Mg Tablet) 0.2 mg PO BID [facility]; Protocol Last Admin: 09/03/23 07:51 Dose: 0.2 mg Documented By: NAKIA Docusate Sodium (Docusate Sodium 100 Mg Capsule) 100 mg PO BID [facility] Last Admin: 09/03/23 07:51 Dose: Not Given Documented By: NAKIA Non-Admin Reason: Patient Refused Thiamine HCl 100 mg/ Sodium (Chloride) 101 mls @ 202 mls/hr IV DAILY [facility] Last Infusion: 09/02/23 09:53 Dose: Infused Documented By: WAYLON Folic Acid 1 mg/ Sodium (Chloride) 50.2 mls @ 100.4 mls/hr IV DAILY [facility] Stop: 09/04/23 09:29 Last Admin: 09/03/23 09:08 Dose: 100.4 mls/hr Documented By: NAKIA Ceftriaxone Sodium 1 gm/ (Sodium Chloride) 50 mls @ 100 mls/hr IV Q24H [facility] Last Infusion: 09/03/23 00:18 Dose: Infused Documented By: DIONISIO Doxycycline Hyclate 100 mg/ (Sodium Chloride) 250 mls @ 166.67 mls/hr IV Q12H [facility] Last Infusion: 09/03/23 02:00 Dose: Infused Documented By: HO.SEXK Ondansetron HCl (Ondansetron Hcl 4 Mg/2 Ml Vial) 4 mg IVPUSH Q8H PRN PRN Reason: Nausea and Vomiting Pharmacy Consult (Consult Rx Etoh Phenob Im/Po) 1 each MISCELLANE ONCE PRN; Protocol PRN Reason: Consult order Phenobarbital (Phenobarbital 15 Mg Tablet) 45 mg PO BID [facility] Stop: 09/04/23 09:01 Last Admin: 09/03/23 07:51 Dose: 45 mg Documented By: NAKIA Phenobarbital (Phenobarbital 15 Mg Tablet) 15 mg PO BID [facility] Stop: 09/06/23 09:01 Phenobarbital (Phenobarbital 15 Mg Tablet) 15 mg PO DAILY [facility] Stop: 09/08/23 09:01 Polyethylene Glycol (Polyethylene Glycol 3350 17 Gm Powd.Pack) 17 gm PO DAILY [facility] Last Admin: 09/03/23 07:51 Dose: Not Given Documented By: NAKIA Non-Admin Reason: Patient Refused Prednisolone Sodium Phosphate (Prednisolone Sodium Phosphate 15 Mg/5 Ml Solution) 40 mg PO DAILY [facility] Last Admin: 09/03/23 07:52 Dose: 40 mg Documented By: NAKIA Senna (Sennosides 8.6 Mg Tablet) 17.2 mg PO BEDTIME PRN PRN Reason: Constipation Sodium Chloride (0.9 % Sodium Chloride Flush 3 Ml Syringe) 3 ml IVFLUSH QSHIFT [facility] Last Admin: 09/03/23 09:11 Dose: 3 ml Documented By: NAKIA Labs 09/03/23 05:48 09/03/23 05:48 Labs: Laboratory Results - last 24 hr 09/02/23 09/02/23 09/03/23 09:14 09:15 05:48 MCV 98.9 H MCH 34.7 H MCHC 35.1 RDW 16.0 Plt Count 188 MPV 12.8 H Absolute Nucleated RBC 0.000 Nucleated RBC % (auto) 0.0 PT 21.6 H INR 1.8 H Anion Gap 14 Estim Creat Clear Calc 170.4 Estimated GFR > 60 Fasting Glucose 89 Calcium 8.6 D Total Bilirubin 10.7 H Direct Bilirubin 8.6 H AST 204 H ALT 26 Alkaline Phosphatase 268 H Total Protein 7.3 Albumin 3.1 L Urine Color [place] Urine Appearance Clear Urine pH 6.5 Ur Specific [place] 1.020 Urine Protein See Note Urine Glucose (UA) See Note Urine Ketones 40 Urine Blood Negative Urine Nitrite See Note Ur Leukocyte Esterase Negative Urine RBC 0-2 Urine WBC 0-5 Ur Squamous Epith Cells 0-2 Urine Bacteria None Seen Hyaline Casts 0-2 Urine Opiates Screen Not Detected Urine Fentanyl Screen Not Detected Ur Barbiturates Screen POSITIVE H Ur Phencyclidine Scrn Not Detected Ur Amphetamines Screen Not Detected U Benzodiazepines Scrn Not Detected Urine Cocaine Screen Not Detected U Marijuana (THC) Screen Not Detected Assessment and Plan (1) Alcoholic hepatitis: Status: Acute Plan 47M PMH etoh dependence, htn, hld, anxiety presented with ams, jaundice Acute metabolic encephalopathy due to acute hepatic encephalopathy inpatient with acute alcoholic hepatitis complicated by alcohol withdrawal Continue prednisolone 40 mg daily for elevated Maddrey score phenobarb gi following monitor lfts - increased tbili and inr today mentation back to baseline htn clonidine mild intermittent ashtma stable dvt prophylaxis - mechanical due to coagulopathy full code reason for continued hospitalization: withdrawal, lfts increasing Quality Stroke Does the patient have a stroke diagnosis?: No VTE Prior VTE?: No VTE Risk Level:: Medical - moderate - high VTE Device Contraindication: Treatment Not Indicated VTE Drug Contraindication: N/A - Med Ordered
[2023-09-03] MEDS: Thiamine HCL 100 MG in 0.9 % Sodium Chloride 100 ML 202 MG IV (09:40)
[2023-09-03] MEDS: polyethylene glycoL 3350 17 GM POWD.PACK PO (14:42)
[2023-09-03 15:30] VITALS: BP 119/76; PULSE 115; RESP 18; TEMP 36.9; O2SAT 95
[2023-09-03 20:00] VITALS: BP 130/77; PULSE 100; RESP 18; TEMP 36.9; O2SAT 95
[2023-09-03] MEDS: Docusate Sodium 100 MG CAPSULE PO (21:03)
[2023-09-03] MEDS: cefTRIAXone sodium 1 GM in 0.9 % Sodium Chloride 50 ML IV (23:24)
[2023-09-04 03:15] VITALS: BP 115/67; PULSE 105; RESP 18; TEMP 37; O2SAT 95
[2023-09-04 06:14] LABS: INTERNATIONAL NORM RATIO 2.3 (0.9-1.1); Prothrombin Time 28.1 SEC (11.1-13.3)
[2023-09-04 06:22] LABS: Alanine Aminotransferase 23 U/L (0-40); Albumin Level 2.8 g/dL (3.5-5.0); Alkaline Phosphatase 230 U/L (39-117); Anion Gap 16 (12-20); Aspartate Amino Transferase 190 U/L (5-37); Bilirubin Direct 9.5 mg/dL (0.0-0.5); Bilirubin Total 12.2 mg/dL (0.0-1.0); Blood Urea Nitrogen 9 mg/dL (9-16); Calcium 8.5 mg/dL (8.4-10.2); Carbon Dioxide 28 mmol/L (22-29); Chloride 91 mmol/L (96-108); Estimated Glomerular Filt Rate > 60; Glucose Fasting 85 mg/dL (60-99); Potassium 3.6 mmol/L (3.3-5.1); Sodium 131 mmol/L (135-145); Total Protein 6.6 g/dL (6.5-8.0)
[2023-09-04 06:34] LABS: Hematocrit 33.2 % (42.0-52.0); Hemoglobin 11.6 g/dl (14.0-18.0); Mean Corpuscular HGB Conc 34.9 g/dl (31.0-36.0); Mean Corpuscular Hemoglobin 34.7 pg (27.0-33.0); Mean Corpuscular Volume 99.4 fL (80.0-98.0); Mean Platelet Volume 12.6 fL (9.4-12.4); NRBC Pct Auto 0.2 /100WBC (0.0-0.2); Platelet Count 183 X10*3/uL (160-400); Red Blood Count 3.34 X10*6/uL (4.60-5.80); White Blood Count 11.9 X10*3/uL (4.8-10.8)
[2023-09-04 07:40] VITALS: BP 114/69; PULSE 120; RESP 18; TEMP 36.8; O2SAT 93
[2023-09-04] MEDS: PHENobarbitaL 15 MG TABLET 45 MG PO (08:16)
[2023-09-04] MEDS: prednisoLONE sodium phosphate 15 MG/5 ML SOLUTION 40 MG PO (08:17)
[2023-09-04] MEDS: cloNIDine HCL 0.2 MG TABLET PO ×2 (08:18→20:33)
[2023-09-04] MEDS: Thiamine HCL 100 MG in 0.9 % Sodium Chloride 100 ML 202 MG IV (08:19)
[2023-09-04] MEDS: 0.9 % Sodium Chloride Flush 3 ML SYRINGE IVFLUSH ×3 (08:21→23:52)
[2023-09-04] MEDS: Folic Acid 1 MG in 0.9 % Sodium Chloride 50 ML 100.4 MG IV (10:15)
[2023-09-04] MEDS: Doxycycline Hyclate 100 MG in 0.9 % Sodium Chloride 250 ML 166.67 MG IV ×2 (10:55→20:32)
--- NOTE | 2023-09-04 10:57 | HO.PM.IMPN ---
Subjective Subjective Date of Service: 09/04/23 Interval History: Seen and evaluated this morning Feels much better overall Bili and INR still going up no reported bleeding overnight Review of Systems Review of Systems: Yes all other systems are reviewed and are negative Physical Exam Vital Signs: Vital Signs: Last Vital Signs Temp 98.3 F 09/04/23 07:40 Pulse 120 H 09/04/23 07:40 Resp 18 09/04/23 07:40 BP 114/69 09/04/23 07:40 Pulse Ox 93 09/04/23 07:40 O2 Del Method Room Air 09/04/23 07:40 O2 Flow Rate 2 09/02/23 07:25 BMI result Body Mass Index 28.7 Const: Other: Constitutional : Awake, interactive, Jaundice, not in distress Neck : Normal inspection, Supple Cardiovascular : RRR, no JVP, no lower extremity edema Respiratory : good bilateral air entry, RLL basal fine crackles, wheezes or rhonchi Gastrointestinal: soft, lax, Normal bowel sounds, Non tender Skin : Warm, Dry Neurological : Alert & oriented x3, No focal deficit Objective Data Active Medications Acetaminophen (Acetaminophen 325 Mg Tablet) 650 mg PO Q6H PRN PRN Reason: Pain, Mild (Pain Scale 1-3) Clonidine HCl (Clonidine Hcl 0.2 Mg Tablet) 0.2 mg PO BID [facility]; Protocol Last Admin: 09/04/23 08:18 Dose: 0.2 mg Documented By: NAKIA Docusate Sodium (Docusate Sodium 100 Mg Capsule) 100 mg PO BID [facility] Last Admin: 09/04/23 08:18 Dose: Not Given Documented By: NAKIA Non-Admin Reason: Patient Refused Thiamine HCl 100 mg/ Sodium (Chloride) 101 mls @ 202 mls/hr IV DAILY [facility] Last Infusion: 09/04/23 09:05 Dose: Infused Documented By: NAKIA Ceftriaxone Sodium 1 gm/ (Sodium Chloride) 50 mls @ 100 mls/hr IV Q24H [facility] Last Infusion: 09/04/23 00:13 Dose: Infused Documented By: ADALI Doxycycline Hyclate 100 mg/ (Sodium Chloride) 250 mls @ 166.67 mls/hr IV Q12H [facility] Last Admin: 09/04/23 10:55 Dose: 166.67 mls/hr Documented By: NAKIA Ondansetron HCl (Ondansetron Hcl 4 Mg/2 Ml Vial) 4 mg IVPUSH Q8H PRN PRN Reason: Nausea and Vomiting Pharmacy Consult (Consult Rx Etoh Phenob Im/Po) 1 each MISCELLANE ONCE PRN; Protocol PRN Reason: Consult order Phenobarbital (Phenobarbital 15 Mg Tablet) 15 mg PO BID [facility] Stop: 09/06/23 09:01 Phenobarbital (Phenobarbital 15 Mg Tablet) 15 mg PO DAILY [facility] Stop: 09/08/23 09:01 Polyethylene Glycol (Polyethylene Glycol 3350 17 Gm Powd.Pack) 17 gm PO DAILY [facility] Last Admin: 09/04/23 10:14 Dose: Not Given Documented By: NAKIA Non-Admin Reason: Patient Refused Prednisolone Sodium Phosphate (Prednisolone Sodium Phosphate 15 Mg/5 Ml Solution) 40 mg PO DAILY [facility] Last Admin: 09/04/23 08:17 Dose: 40 mg Documented By: NAKIA Senna (Sennosides 8.6 Mg Tablet) 17.2 mg PO BEDTIME PRN PRN Reason: Constipation Sodium Chloride (0.9 % Sodium Chloride Flush 3 Ml Syringe) 3 ml IVFLUSH QSHIFT [facility] Last Admin: 09/04/23 08:21 Dose: 3 ml Documented By: NAKIA Labs 09/04/23 05:49 09/04/23 05:49 Labs: Laboratory Results - last 24 hr 09/04/23 05:49 MCV 99.4 H MCH 34.7 H MCHC 34.9 RDW 16.0 Plt Count 183 MPV 12.6 H Absolute Nucleated RBC 0.020 H Nucleated RBC % (auto) 0.2 PT 28.1 H D INR 2.3 H Anion Gap 16 Estim Creat Clear Calc 160.0 Estimated GFR > 60 Fasting Glucose 85 Calcium 8.5 Total Bilirubin 12.2 H Direct Bilirubin 9.5 H AST 190 H ALT 23 Alkaline Phosphatase 230 H Total Protein 6.6 Albumin 2.8 L Microbiology Microbiology Results: Microbiology 09/03/23 05:48 Blood Culture - Preliminary Blood - Venous No growth after 24 hours. 09/03/23 05:52 Blood Culture - Preliminary Blood - Venous No growth after 24 hours. Assessment and Plan (1) Alcoholic hepatitis: Status: Acute (2) Alcohol dependence: Status: Acute (3) Pneumonia: Status: Acute Plan 47M PMH etoh dependence, htn, hld, anxiety presented with ams, jaundice Acute metabolic encephalopathy due to acute hepatic encephalopathy inpatient with acute alcoholic hepatitis complicated by alcohol withdrawal Continue prednisolone 40 mg daily for elevated Maddrey score Lille score of <0.45, good prognosis contiinue phenobarb gi following increased tbili and inr today, continue to monitor mentation back to baseline RLL Pneumonia on CXR on Abx of Doxy and Ceftriaxone htn clonidine mild intermittent ashtma stable dvt prophylaxis - mechanical due to coagulopathy full code reason for continued hospitalization: withdrawal, LFT increasing pending clinical improvement Quality Stroke Does the patient have a stroke diagnosis?: No VTE Prior VTE?: No VTE Risk Level:: Medical - moderate - high VTE Device Contraindication: Treatment Not Indicated VTE Drug Contraindication: N/A - Med Ordered
--- NOTE | 2023-09-04 14:03 | MHC.CM.PN ---
EMR reviewed. Per MD rounds patient is not medically cleared for dc. DP: home self care. CM will continue to follow.
--- NOTE | 2023-09-04 14:10 | MHC.CLN ---
NUTRITION CONSULT FOR DIET PLAN FOR HEPATITIS. NO SPECIFIC DIET FOR HEPATITIS. ADVISED PATIENT TO EAT A VARIETY OF FOODS AND FOLLOW A GENERAL HEALTHFUL DIET. EATS 3 MEALS PER DAY AND ENCOURAGED TO CONTINUE THE SAME.
[2023-09-04 16:00] VITALS: BP 112/68; PULSE 98; RESP 16; TEMP 36.3; O2SAT 96
--- NOTE | 2023-09-04 18:23 | PC.NURSE ---
patient refuses [employer]entials stockings,risks explained,encouraged activity
[2023-09-04 19:31] VITALS: BP 120/72; PULSE 114; RESP 18; TEMP 36.9; O2SAT 95
[2023-09-04] MEDS: Docusate Sodium 100 MG CAPSULE PO (20:33)
[2023-09-04] MEDS: PHENobarbitaL 15 MG TABLET PO (20:34)
[2023-09-04] MEDS: cefTRIAXone sodium 1 GM in 0.9 % Sodium Chloride 50 ML IV (22:11)
[2023-09-05 03:30] VITALS: BP 116/71; PULSE 102; RESP 18; TEMP 37.2; O2SAT 95
[2023-09-05 06:41] LABS: INTERNATIONAL NORM RATIO 2.5 (0.9-1.1); Prothrombin Time 30.4 SEC (11.1-13.3)
[2023-09-05 06:46] LABS: Alanine Aminotransferase 25 U/L (0-40); Albumin Level 2.8 g/dL (3.5-5.0); Alkaline Phosphatase 234 U/L (39-117); Anion Gap 15 (12-20); Aspartate Amino Transferase 176 U/L (5-37); Bilirubin Direct 10.9 mg/dL (0.0-0.5); Bilirubin Total 13.7 mg/dL (0.0-1.0); Blood Urea Nitrogen 8 mg/dL (9-16); Calcium 8.4 mg/dL (8.4-10.2); Carbon Dioxide 30 mmol/L (22-29); Chloride 89 mmol/L (96-108); Estimated Glomerular Filt Rate > 60; Glucose Random 78 mg/dL (60-115); Potassium 3.9 mmol/L (3.3-5.1); Sodium 130 mmol/L (135-145); Total Protein 6.5 g/dL (6.5-8.0)
[2023-09-05 07:49] VITALS: BP 123/75; PULSE 119; RESP 18; TEMP 36.3; O2SAT 93
[2023-09-05] MEDS: 0.9 % Sodium Chloride Flush 3 ML SYRINGE IVFLUSH ×3 (08:29→23:33)
[2023-09-05] MEDS: Doxycycline Hyclate 100 MG in 0.9 % Sodium Chloride 250 ML 166.67 MG IV ×2 (08:29→20:48)
[2023-09-05] MEDS: Docusate Sodium 100 MG CAPSULE PO ×2 (08:30→22:00)
[2023-09-05] MEDS: PHENobarbitaL 15 MG TABLET PO ×2 (08:30→20:58)
[2023-09-05] MEDS: prednisoLONE sodium phosphate 15 MG/5 ML SOLUTION 40 MG PO (08:30)
[2023-09-05] MEDS: cloNIDine HCL 0.2 MG TABLET PO ×2 (08:30→20:49)
--- NOTE | 2023-09-05 08:47 | P.PNGI_ITS ---
Subjective Subjective Date of Service: 09/05/23 Interval History: Seen at bedside, with family members present. Patient himself does not report any new gastrointestinal complaints. Reviewed labs, specifically worsening of bilirubin and INR. Critical Care Time (minutes): 0 Physical Exam 2 Vital Signs: Vital Signs: Last Vital Signs Temp 97.3 F 09/05/23 07:49 Pulse 119 H 09/05/23 07:49 Resp 18 09/05/23 07:49 BP 123/75 09/05/23 07:49 Pulse Ox 93 09/05/23 07:49 O2 Del Method Room Air 09/05/23 07:49 O2 Flow Rate 2 09/02/23 07:25 BMI result Body Mass Index 28.7 Grossly jaundiced Icteric Speaking in full sentences No overt respiratory effort No asterixis Objective Data Labs 09/04/23 05:49 09/05/23 05:57 Labs: Laboratory Results - last 24 hr 09/05/23 05:57 PT 30.4 H INR 2.5 H Sodium 130 L Potassium 3.9 Chloride 89 L Carbon Dioxide 30 H Anion Gap 15 BUN 8 L Creatinine 0.59 Estim Creat Clear Calc 179.0 Estimated GFR > 60 Random Glucose 78 Calcium 8.4 Total Bilirubin 13.7 H Direct Bilirubin 10.9 H AST 176 H ALT 25 Alkaline Phosphatase 234 H Total Protein 6.5 Albumin 2.8 L Microbiology Microbiology Results: Microbiology 09/03/23 05:48 Blood - Venous Blood Culture - Preliminary No growth after 48 hours. 09/03/23 05:52 Blood - Venous Blood Culture - Preliminary No growth after 48 hours. Procedures Date of Service Date of Service: 09/06/23 Progress Note: A&P Assessment and plan (1) Alcohol withdrawal: Status: Acute (2) Alcoholic hepatitis: Status: Acute (3) Alcohol dependence: Status: Acute Plan Day 4 Lille 0.469 i.e predicts known response to corticosteroid. However, since transaminases are trending down, will favor continuing prednisolone until at least day 7 that is 09/08. IV vitamin K 10 mg x2 doses Please ensure adequate caloric intake, especially protein shakes t.i.d. Encourage ambulation Limited role of trending ammonia, please monitor clinically for hepatic encephalopathy Daily MELD labs May need to discuss transfer to liver transplant facility ([facility]) if clinical course does not improve over the next 48 hours Time Spent With Patient Time: Total time managing care of this patient today ____ minutes. Quality Stroke Does the patient have a stroke diagnosis?: No VTE Prior VTE?: No VTE Risk Level:: Medical - moderate - high VTE Device Contraindication: Treatment Not Indicated VTE Drug Contraindication: N/A - Med Ordered
--- NOTE | 2023-09-05 09:57 | HO.PM.IMPN ---
Subjective Subjective Date of Service: 09/05/23 Interval History: Seen and evaluated this morning Feels much better overall Bili and INR still going up , Lille score of 0.469 no reported bleeding overnight Physical Exam Vital Signs: Vital Signs: Last Vital Signs Temp 97.3 F 09/05/23 07:49 Pulse 119 H 09/05/23 07:49 Resp 18 09/05/23 07:49 BP 123/75 09/05/23 07:49 Pulse Ox 93 09/05/23 07:49 O2 Del Method Room Air 09/05/23 07:49 O2 Flow Rate 2 09/02/23 07:25 BMI result Body Mass Index 28.7 Const: Other: Constitutional : Awake, interactive, Jaundice, not in distress Neck : Normal inspection, Supple Cardiovascular : RRR, no JVP, no lower extremity edema Respiratory : good bilateral air entry, RLL basal fine crackles, wheezes or rhonchi Gastrointestinal: soft, lax, Normal bowel sounds, Non tender Skin : Warm, Dry Neurological : Alert & oriented x3, No focal deficit Objective Data Active Medications Acetaminophen (Acetaminophen 325 Mg Tablet) 650 mg PO Q6H PRN PRN Reason: Pain, Mild (Pain Scale 1-3) Clonidine HCl (Clonidine Hcl 0.2 Mg Tablet) 0.2 mg PO BID [facility]; Protocol Last Admin: 09/05/23 08:30 Dose: 0.2 mg Documented By: GABBY Docusate Sodium (Docusate Sodium 100 Mg Capsule) 100 mg PO BID [facility] Last Admin: 09/05/23 08:30 Dose: 100 mg Documented By: GABBY Thiamine HCl 100 mg/ Sodium (Chloride) 101 mls @ 202 mls/hr IV DAILY [facility] Last Infusion: 09/04/23 09:05 Dose: Infused Documented By: NAKIA Doxycycline Hyclate 100 mg/ (Sodium Chloride) 250 mls @ 166.67 mls/hr IV Q12H [facility] Last Admin: 09/05/23 08:29 Dose: 166.67 mls/hr Documented By: GABBY Ceftriaxone Sodium 1 gm/ (Sodium Chloride) 50 mls @ 100 mls/hr IV Q24H [facility] Last Infusion: 09/04/23 22:51 Dose: Infused Documented By: MIGUEL ANGEL Ondansetron HCl (Ondansetron Hcl 4 Mg/2 Ml Vial) 4 mg IVPUSH Q8H PRN PRN Reason: Nausea and Vomiting Pharmacy Consult (Consult Rx Etoh Phenob Im/Po) 1 each MISCELLANE ONCE PRN; Protocol PRN Reason: Consult order Phenobarbital (Phenobarbital 15 Mg Tablet) 15 mg PO BID [facility] Stop: 09/06/23 09:01 Last Admin: 09/05/23 08:30 Dose: 15 mg Documented By: GABBY Phenobarbital (Phenobarbital 15 Mg Tablet) 15 mg PO DAILY [facility] Stop: 09/08/23 09:01 Polyethylene Glycol (Polyethylene Glycol 3350 17 Gm Powd.Pack) 17 gm PO DAILY [facility] Last Admin: 09/05/23 08:28 Dose: Not Given Documented By: GABBY Non-Admin Reason: Patient Refused Prednisolone Sodium Phosphate (Prednisolone Sodium Phosphate 15 Mg/5 Ml Solution) 40 mg PO DAILY [facility] Last Admin: 09/05/23 08:30 Dose: 40 mg Documented By: GABBY Senna (Sennosides 8.6 Mg Tablet) 17.2 mg PO BEDTIME PRN PRN Reason: Constipation Sodium Chloride (0.9 % Sodium Chloride Flush 3 Ml Syringe) 3 ml IVFLUSH QSHIFT [facility] Last Admin: 09/05/23 08:29 Dose: 3 ml Documented By: GABBY Labs 09/04/23 05:49 09/05/23 05:57 Labs: Laboratory Results - last 24 hr 09/05/23 05:57 PT 30.4 H INR 2.5 H Anion Gap 15 Estim Creat Clear Calc 179.0 Estimated GFR > 60 Random Glucose 78 Calcium 8.4 Total Bilirubin 13.7 H Direct Bilirubin 10.9 H AST 176 H ALT 25 Alkaline Phosphatase 234 H Total Protein 6.5 Albumin 2.8 L Microbiology Microbiology Results: Microbiology 09/03/23 05:48 Blood Culture - Preliminary Blood - Venous No growth after 48 hours. 09/03/23 05:52 Blood Culture - Preliminary Blood - Venous No growth after 48 hours. Assessment and Plan (1) Pneumonia: Status: Acute (2) Alcoholic hepatitis: Status: Acute (3) Alcohol dependence: Status: Acute (4) Elevated transaminase level: Status: Acute Plan 47M PMH etoh dependence, htn, hld, anxiety presented with ams, jaundice Acute metabolic encephalopathy due to acute hepatic encephalopathy inpatient with acute alcoholic hepatitis complicated by alcohol withdrawal Continue prednisolone 40 mg daily for elevated Maddrey score increased tbili and inr today, continue to monitor Lille score of 0.469 at day 5, poor response to steroids, consider transplant center continue phenobarb GI following mentation back to baseline RLL Pneumonia on CXR on Abx of Doxy and Ceftriaxone Elevated INR 2.5, from liver injury give Vit K protein shakes htn clonidine mild intermittent ashtma stable dvt prophylaxis - mechanical due to coagulopathy full code reason for continued hospitalization: withdrawal, LFT increasing pending clinical improvement or need to a tertiary hospital transfer Quality Stroke Does the patient have a stroke diagnosis?: No VTE Prior VTE?: No VTE Risk Level:: Medical - moderate - high VTE Device Contraindication: Treatment Not Indicated VTE Drug Contraindication: N/A - Med Ordered
[2023-09-05] MEDS: Thiamine HCL 100 MG in 0.9 % Sodium Chloride 100 ML 202 MG IV (10:20)
[2023-09-05] MEDS: Phytonadione (Vit K1) 10 MG in 0.9 % Sodium Chloride 50 ML 51 MG IV (11:20)
[2023-09-05] MEDS: Spironolactone 25 MG TABLET 12.5 MG PO ×2 (14:52→17:06)
[2023-09-05] MEDS: Omeprazole 40 MG CAPSULE.DR PO (14:52)
[2023-09-05 14:59] VITALS: BP 116/70; PULSE 112; RESP 18; TEMP 36.9; O2SAT 93
[2023-09-05 19:33] VITALS: BP 118/64; PULSE 100; RESP 18; TEMP 36.5; O2SAT 96
[2023-09-05 22:32] VITALS: BP 109/65; PULSE 95; RESP 18; TEMP 36.4; O2SAT 96
[2023-09-06 05:47] VITALS: BP 124/70; PULSE 107; RESP 18; TEMP 36.5; O2SAT 95
[2023-09-06] MEDS: Omeprazole 40 MG CAPSULE.DR PO (06:02)
[2023-09-06 06:22] LABS: Alanine Aminotransferase 27 U/L (0-40); Albumin Level 2.8 g/dL (3.5-5.0); Alkaline Phosphatase 230 U/L (39-117); Aspartate Amino Transferase 172 U/L (5-37); Bilirubin Direct 11.8 mg/dL (0.0-0.5); Bilirubin Total 15.2 mg/dL (0.0-1.0); Lactate Dehydrogenase 222 U/L (118-273); Total Protein 6.4 g/dL (6.5-8.0)
[2023-09-06 06:23] LABS: Prothrombin Time 24.8 SEC (11.1-13.3)
--- NOTE | 2023-09-06 07:00 | CA_ITS ---
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 The visually estimated ejection fraction is between 65-70%. - No obvious valvular pathology seen on this study. Findings Left Ventricle Normal left ventricular cavity size. There is normal left ventricular wall thickness. The left ventricular systolic function is normal. The visually estimated ejection fraction is between 65-70%. There is no evidence of regional wall motion abnormalities. Diastolic function is normal for age. Right Ventricle Normal right ventricular cavity size and systolic function. Atria Both atria are normal in size. Aortic Valve There is a normal trileaflet aortic valve. There is no aortic valve stenosis. There is no aortic valve regurgitation. Mitral Valve The mitral valve appears normal. There is trace mitral valve regurgitation. There is no mitral valve stenosis. Pulmonic Valve The pulmonic valve is likely normal. Tricuspid Valve There is trace tricuspid valve regurgitation. There is no evidence of pulmonary hypertension. Great Vessels The asc aorta is normal in size. Venous The inferior vena cava is normal in size and collapses greater than 50% with inspiration. Pericardium/Pleural There is no evidence of pericardial effusion. Prior Study Comparison No prior study available for comparison. Recommendations, Care & Conclusions No obvious valvular pathology seen on this study. Measurements 2D Linear Measurements IVSd: 1.01 0.6-0.9/0.6-1.0 cm LVIDd: 4.83 3.9-5.3/4.2-5.9 cm LVIDd Index: 2.32 2.4-3.2/2.2-3.1 cm/m2 LVIDs: 2.23 2.0-3.6 cm LVPWd: 1.03 0.7-1.1 cm LA Diam: 3.80 2.7-3.8/3.0-4.0 cm LAIDs Index: 1.83 1.5-2.3 cm/m2 LV Mass: 220.03 67-162/88-224 g LV Mass Index: 105.78 43-95/49-115 g/m2 LVOT Diam: 2.20 3.0+(-)1.3 cm 2D Systolic Function EF 4C: 69.50 >55% EF 2C: 54.90 >55% EF BiP: 63.80 >55% Mitral Valve MV Pk E: 0.98 MV PK A: 0.96 MV Decel Time: 135.00 E/A: 1.00 E'Lateral: 14.50 E'Medial: 11.60 E/E' Med: 8.50 E/E' Lat: 6.80 PHT: 40.00 MVA PHT: 5.50 Decel Duval: 7.25 Aortic Valve AoV Pk Myke: 2.28 AoV Mn Myke: 1.46 AoV VTI: 0.33 AoV Pk Grad: 21.00 Aov Mn Grad: 10.00 LITTLE Cont.VTI: 2.78 LVOT LVOT Pk Myke: 1.49 LVOT Mn Myke: 1.05 LVOT VTI: 0.24 LVOT Pk Grad: 9.00 LVOT Mn Grad: 5.00 LVOT Diam: 2.20 LVOT Area: 3.80 Diastolic Function MV Pk E: 0.98 MV Pk A: 0.96 E/A: 1.00 E'Medial: 11.60 E/E' Med: 8.50 E' Laterial: 14.50 E/E' Lat: 6.80 Right Ventricle TAPSE (mm): 32.10 TVS' Myke: 18.40 Tricuspid Valve TR Pk Myke: 2.43 TR Pk Grad: 24.00 RA Press: 3.00 RVSP: 27.00 Great Vessels Aorta Sinus of Valsalva: 3.10 2.0-3.5 cm Ao Asc: 3.50 2.1-3.4 cm Pulmonary Valve PV Pk Myke: 1.42 Peak PV Grad: 8.00 Updated in Other Vendor System with Status of Final Pedro Tom MD electronically signed on 09/06/2023 1:19:39 PM with status of Final
[2023-09-06 08:15] VITALS: BP 137/75; PULSE 117; RESP 18; TEMP 36.5; O2SAT 95
[2023-09-06] MEDS: PHENobarbitaL 15 MG TABLET PO (09:15)
[2023-09-06] MEDS: Doxycycline Hyclate 100 MG in 0.9 % Sodium Chloride 250 ML 166.67 MG IV ×2 (09:15→21:31)
[2023-09-06] MEDS: 0.9 % Sodium Chloride Flush 3 ML SYRINGE IVFLUSH (09:15)
[2023-09-06] MEDS: Spironolactone 25 MG TABLET 12.5 MG PO (09:16)
[2023-09-06] MEDS: cloNIDine HCL 0.2 MG TABLET PO ×2 (09:16→21:31)
[2023-09-06] MEDS: prednisoLONE sodium phosphate 15 MG/5 ML SOLUTION 40 MG PO (09:17)
[2023-09-06] MEDS: Docusate Sodium 100 MG CAPSULE PO ×2 (09:19→21:31)
--- NOTE | 2023-09-06 09:53 | HO.PM.IMPN ---
Subjective Subjective Date of Service: 09/06/23 Interval History: Seen and evaluated this morning Feels better overall but getting anxious about the situation Bili and INR still going up , Lille score of 0.55 no reported bleeding overnight Review of Systems Review of Systems: Yes all other systems are reviewed and are negative Physical Exam Vital Signs: Vital Signs: Last Vital Signs Temp 97.7 F 09/06/23 08:15 Pulse 117 H 09/06/23 08:15 Resp 18 09/06/23 08:15 BP 137/75 09/06/23 08:15 Pulse Ox 95 09/06/23 08:15 O2 Del Method Room Air 09/06/23 08:15 O2 Flow Rate 2 09/02/23 07:25 BMI result Body Mass Index 28.7 Const: Other: Constitutional : Awake, interactive, Jaundice, not in distress Neck : Normal inspection, Supple Cardiovascular : RRR, no JVP, no lower extremity edema Respiratory : good bilateral air entry, RLL basal fine crackles, wheezes or rhonchi Gastrointestinal: soft, lax, Normal bowel sounds, Non tender, mildly distended, no ascites Skin : Warm, Dry Neurological : Alert & oriented x3, No focal deficit Objective Data Active Medications Clonidine HCl (Clonidine Hcl 0.2 Mg Tablet) 0.2 mg PO BID [facility]; Protocol Last Admin: 09/06/23 09:16 Dose: 0.2 mg Documented By: NAKIA Docusate Sodium (Docusate Sodium 100 Mg Capsule) 100 mg PO BID [facility] Last Admin: 09/06/23 09:19 Dose: 100 mg Documented By: NAKIA Hydroxyzine HCl (Hydroxyzine Hcl 25 Mg Tablet) 25 mg PO Q6H PRN PRN Reason: anxiety/restlessness Thiamine HCl 100 mg/ Sodium (Chloride) 101 mls @ 202 mls/hr IV DAILY [facility] Last Infusion: 09/05/23 11:00 Dose: Infused Documented By: GABBY Doxycycline Hyclate 100 mg/ (Sodium Chloride) 250 mls @ 166.67 mls/hr IV Q12H [facility] Last Admin: 09/06/23 09:15 Dose: 166.67 mls/hr Documented By: NAKIA Phytonadione 10 mg/ Sodium (Chloride) 51 mls @ 51 mls/hr IV DAILY [facility] Stop: 09/06/23 11:00 Last Infusion: 09/05/23 13:49 Dose: Infused Documented By: GABBY Omeprazole (Omeprazole 40 Mg Capsule.Dr) 40 mg PO DAILY@0630 [facility] Last Admin: 09/06/23 06:02 Dose: 40 mg Documented By: DIONISIO Ondansetron HCl (Ondansetron Hcl 4 Mg/2 Ml Vial) 4 mg IVPUSH Q8H PRN PRN Reason: Nausea and Vomiting Pharmacy Consult (Consult Rx Etoh Phenob Im/Po) 1 each MISCELLANE ONCE PRN; Protocol PRN Reason: Consult order Phenobarbital (Phenobarbital 15 Mg Tablet) 15 mg PO DAILY [facility] Stop: 09/08/23 09:01 Polyethylene Glycol (Polyethylene Glycol 3350 17 Gm Powd.Pack) 17 gm PO DAILY [facility] Last Admin: 09/06/23 09:20 Dose: Not Given Documented By: NAKIA Non-Admin Reason: Patient Refused Prednisolone Sodium Phosphate (Prednisolone Sodium Phosphate 15 Mg/5 Ml Solution) 40 mg PO DAILY [facility] Last Admin: 09/06/23 09:17 Dose: 40 mg Documented By: NAKIA Senna (Sennosides 8.6 Mg Tablet) 17.2 mg PO BEDTIME PRN PRN Reason: Constipation Sodium Chloride (0.9 % Sodium Chloride Flush 3 Ml Syringe) 3 ml IVFLUSH QSHIFT [facility] Last Admin: 09/06/23 09:15 Dose: 3 ml Documented By: NAKIA Spironolactone (Spironolactone 25 Mg Tablet) 12.5 mg PO BID@0900,1800 [facility]; Protocol Last Admin: 09/06/23 09:16 Dose: 12.5 mg Documented By: NAKIA Labs 09/04/23 05:49 09/05/23 05:57 Labs: Laboratory Results - last 24 hr 09/06/23 05:44 Hold Purple Top SEE NOTE PT 24.8 H INR 2.0 H Total Bilirubin 15.2 H Direct Bilirubin 11.8 H AST 172 H ALT 27 Alkaline Phosphatase 230 H Lactate Dehydrogenase 222 Total Protein 6.4 L Albumin 2.8 L Microbiology Microbiology Results: Microbiology 09/03/23 05:48 Blood Culture - Preliminary Blood - Venous No growth after 48 hours. 09/03/23 05:52 Blood Culture - Preliminary Blood - Venous No growth after 48 hours. Assessment and Plan (1) Pneumonia: Status: Acute (2) Alcoholic hepatitis: Status: Acute (3) Alcohol dependence: Status: Acute (4) Alcohol withdrawal: Status: Acute Plan 47M PMH etoh dependence, htn, hld, anxiety presented with ams, jaundice Acute metabolic encephalopathy due to acute hepatic encephalopathy inpatient with acute alcoholic hepatitis complicated by alcohol withdrawal Mentation back to baseline increased tbili and inr today, continue to monitor Continue prednisolone 40 mg daily high protein diet, ensure added Lille score of 0.55 at day 6, poor response to steroids Reached out to [facility] transplant team, they will evaluate and contact back continue phenobarb GI following RLL Pneumonia on CXR on Abx of Doxy and Ceftriaxone dcd Elevated INR 2 after 1 dose Vit K give Vit K for 3 days protein shakes htn clonidine mild intermittent ashtma stable dvt prophylaxis - mechanical due to coagulopathy full code reason for continued hospitalization: withdrawal, LFT increasing pending clinical improvement or need to a tertiary hospital transfer Quality Stroke Does the patient have a stroke diagnosis?: No VTE Prior VTE?: No VTE Risk Level:: Medical - moderate - high VTE Device Contraindication: Treatment Not Indicated VTE Drug Contraindication: N/A - Med Ordered
[2023-09-06] MEDS: PHENobarbitaL sodium 130 MG/ML VIAL IM (09:59)
[2023-09-06] MEDS: Phytonadione (Vit K1) 10 MG in 0.9 % Sodium Chloride 50 ML 51 MG IV (11:22)
--- NOTE | 2023-09-06 12:37 | PM.GIPN ---
Subjective Subjective Date of Service: 09/06/23 Interval History: Seen at bedside. Reports good energy levels. Has been walking around the hallways. Good appetite. Discussed blood work again, bili continues to trend up. In terms of his alcohol use history, has insight into his excessive alcohol use, and has tried to quit on his own a few times in the past. Most recently had visit to the emergency room at [facility] a few months ago to manage withdrawal symptoms when he tried to quit alcohol at home. No history of DUI or rehab admissions. Reports that has been told by emergency room providers about his elevated LFTs, but that was always in the context of alcohol withdrawal. Critical Care Time (minutes): 0 Physical Exam Vital Signs: Vital Signs: Last Vital Signs Temp 97.7 F 09/06/23 08:15 Pulse 117 H 09/06/23 08:15 Resp 18 09/06/23 08:15 BP 137/75 09/06/23 08:15 Pulse Ox 95 09/06/23 08:15 O2 Del Method Room Air 09/06/23 08:15 O2 Flow Rate 2 09/02/23 07:25 BMI result Body Mass Index 28.7 Grossly jaundiced Icteric Speaking in full sentences No overt respiratory distress Palpable hepatomegaly No asterixis Objective Data Labs 09/04/23 05:49 09/05/23 05:57 Labs: Laboratory Results - last 24 hr 09/06/23 05:44 Hold Purple Top SEE NOTE PT 24.8 H INR 2.0 H Total Bilirubin 15.2 H Direct Bilirubin 11.8 H AST 172 H ALT 27 Alkaline Phosphatase 230 H Lactate Dehydrogenase 222 Total Protein 6.4 L Albumin 2.8 L Microbiology Microbiology Results: Microbiology 09/03/23 05:48 Blood - Venous Blood Culture - Preliminary No growth after 48 hours. 09/03/23 05:52 Blood - Venous Blood Culture - Preliminary No growth after 48 hours. Procedures Date of Service Date of Service: 09/06/23 Progress Note: A&P Assessment and plan (1) Alcohol withdrawal: Status: Acute (2) Alcoholic hepatitis: Status: Acute (3) Alcohol dependence: Status: Acute Plan Day 4 Lille score (calculated on 09/05) 0.469 i.e predicts non-response to corticosteroid. Reviewed case with [facility] (Dr Betancourt) - will tentatively accept for transfer - though may not have a bed today. Continue prednisolone 40 mg p.o. for now. Will need recalculation of Lille score at day 7 i.e on 09/08. Echocardiogram Please ensure adequate caloric intake, especially protein shakes t.i.d. Encourage ambulation Limited role of trending ammonia, please monitor clinically for hepatic encephalopathy Daily MELD labs For transfer paperwork, pls include: 1. GI notes 2. Admission labs and most recent labs 3. US Abd 4. Echo Time Spent With Patient Time: Total time managing care of this patient today ____ minutes. Quality Stroke Does the patient have a stroke diagnosis?: No VTE Prior VTE?: No VTE Risk Level:: Medical - moderate - high VTE Device Contraindication: Treatment Not Indicated VTE Drug Contraindication: N/A - Med Ordered
--- NOTE | 2023-09-06 14:25 | MHC.CM.PN ---
EMR REVIEWED AND PER MD ROUNDS, PT IS NOT MEDICALLY CLEARED FOR DC. (BILI TRENDING UPWARD, TENTATIVE ACCEPTANCE AT [facility]) CM WILL CONTINUE TO FOLLOW FOR ANY CHANGE IN DC NEEDS/PLAN.
[2023-09-06] MEDS: hydrOXYzine HCL 25 MG TABLET PO (14:35)
[2023-09-06 15:28] VITALS: BP 133/77; PULSE 118; RESP 20; TEMP 36.7; O2SAT 93
[2023-09-06 20:00] VITALS: BP 111/64; PULSE 64; RESP 18; TEMP 36.7; O2SAT 98
[2023-09-07] MEDS: 0.9 % Sodium Chloride Flush 3 ML SYRINGE IVFLUSH ×2 (00:43→08:51)
[2023-09-07] MEDS: Omeprazole 40 MG CAPSULE.DR PO (06:42)
[2023-09-07 06:55] LABS: INTERNATIONAL NORM RATIO 1.9 (0.9-1.1); Prothrombin Time 22.9 SEC (11.1-13.3)
[2023-09-07 06:59] LABS: Alanine Aminotransferase 26 U/L (0-40); Albumin Level 2.6 g/dL (3.5-5.0); Alkaline Phosphatase 192 U/L (39-117); Anion Gap 15 (12-20); Aspartate Amino Transferase 156 U/L (5-37); Bilirubin Direct 10.9 mg/dL (0.0-0.5); Bilirubin Total 14.1 mg/dL (0.0-1.0); Blood Urea Nitrogen 10 mg/dL (9-16); Calcium 8.1 mg/dL (8.4-10.2); Carbon Dioxide 28 mmol/L (22-29); Chloride 92 mmol/L (96-108); Creatinine Clr Calc Pharmacy 176.1; Estimated Glomerular Filt Rate > 60; Glucose Random 75 mg/dL (60-115); Potassium 3.7 mmol/L (3.3-5.1); Sodium 131 mmol/L (135-145); Total Protein 5.9 g/dL (6.5-8.0)
[2023-09-07 07:34] VITALS: BP 108/60; PULSE 100; RESP 16; TEMP 36.9; O2SAT 92
[2023-09-07] MEDS: cloNIDine HCL 0.2 MG TABLET PO (08:49)
[2023-09-07] MEDS: Thiamine HCL 100 MG TABLET PO (08:49)
[2023-09-07] MEDS: PHENobarbitaL 15 MG TABLET PO (08:49)
[2023-09-07] MEDS: Docusate Sodium 100 MG CAPSULE PO (08:49)
[2023-09-07] MEDS: Spironolactone 25 MG TABLET 12.5 MG PO (08:50)
[2023-09-07] MEDS: Doxycycline Hyclate 100 MG in 0.9 % Sodium Chloride 250 ML 166.67 MG IV (08:51)
[2023-09-07] MEDS: prednisoLONE sodium phosphate 15 MG/5 ML SOLUTION 40 MG PO (08:53)
[2023-09-07] MEDS: Phytonadione (Vit K1) 10 MG in 0.9 % Sodium Chloride 50 ML 51 MG IV (10:34)
--- NOTE | 2023-09-07 10:36 | P.PNIM_ITS ---
Subjective Subjective Date of Service: 09/07/23 Interval History: Seen and evaluated this morning Feels better overall Bili and INR went down for first time , Lille score of 0.55 no reported bleeding overnight Review of Systems Review of Systems: Yes all other systems are reviewed and are negative Physical Exam 2 Vital Signs: Vital Signs: Last Vital Signs Temp 98.4 F 09/07/23 07:34 Pulse 100 09/07/23 07:34 Resp 16 09/07/23 07:34 BP 108/60 09/07/23 07:34 Pulse Ox 92 09/07/23 07:34 O2 Del Method Room Air 09/07/23 07:34 O2 Flow Rate 2 09/02/23 07:25 BMI result Body Mass Index 28.7 Const: Other: Constitutional : Awake, interactive, Jaundice, not in distress Neck : Normal inspection, Supple Cardiovascular : RRR, no JVP, no lower extremity edema Respiratory : good bilateral air entry, RLL basal fine crackles, wheezes or rhonchi Gastrointestinal: soft, lax, Normal bowel sounds, Non tender, mildly distended, no ascites Skin : Warm, Dry Neurological : Alert & oriented x3, No focal deficit Objective Data Active Medications Clonidine HCl (Clonidine Hcl 0.2 Mg Tablet) 0.2 mg PO BID [facility]; Protocol Last Admin: 09/07/23 08:49 Dose: 0.2 mg Documented By: NAKIA Docusate Sodium (Docusate Sodium 100 Mg Capsule) 100 mg PO BID [facility] Last Admin: 09/07/23 08:49 Dose: 100 mg Documented By: NAKIA Hydroxyzine HCl (Hydroxyzine Hcl 25 Mg Tablet) 25 mg PO Q6H PRN PRN Reason: anxiety/restlessness Last Admin: 09/06/23 14:35 Dose: 25 mg Documented By: NAKIA Doxycycline Hyclate 100 mg/ (Sodium Chloride) 250 mls @ 166.67 mls/hr IV Q12H [facility] Last Infusion: 09/07/23 10:31 Dose: Infused Documented By: NAKIA Phytonadione 10 mg/ Sodium (Chloride) 51 mls @ 51 mls/hr IV DAILY [facility] Stop: 09/07/23 11:00 Last Admin: 09/07/23 10:34 Dose: 51 mls/hr Documented By: NAKIA Omeprazole (Omeprazole 40 Mg Capsule.) 40 mg PO DAILY@0630 [facility] Last Admin: 09/07/23 06:42 Dose: 40 mg Documented By: JOSETTE Ondansetron HCl (Ondansetron Hcl 4 Mg/2 Ml Vial) 4 mg IVPUSH Q8H PRN PRN Reason: Nausea and Vomiting Pharmacy Consult (Consult Rx Etoh Phenob Im/Po) 1 each MISCELLANE ONCE PRN; Protocol PRN Reason: Consult order Phenobarbital (Phenobarbital 15 Mg Tablet) 15 mg PO DAILY [facility] Stop: 09/08/23 09:01 Last Admin: 09/07/23 08:49 Dose: 15 mg Documented By: NAKIA Polyethylene Glycol (Polyethylene Glycol 3350 17 Gm Powd.Pack) 17 gm PO DAILY [facility] Last Admin: 09/07/23 08:51 Dose: Not Given Documented By: NAKIA Non-Admin Reason: Patient Refused Prednisolone Sodium Phosphate (Prednisolone Sodium Phosphate 15 Mg/5 Ml Solution) 40 mg PO DAILY [facility] Last Admin: 09/07/23 08:53 Dose: 40 mg Documented By: NAKIA Senna (Sennosides 8.6 Mg Tablet) 17.2 mg PO BEDTIME PRN PRN Reason: Constipation Sodium Chloride (0.9 % Sodium Chloride Flush 3 Ml Syringe) 3 ml IVFLUSH QSHIFT [facility] Last Admin: 09/07/23 08:51 Dose: 3 ml Documented By: NAKIA Spironolactone (Spironolactone 25 Mg Tablet) 12.5 mg PO DAILY [facility]; Protocol Last Admin: 09/07/23 08:50 Dose: 12.5 mg Documented By: NAKIA Thiamine HCl (Thiamine Hcl 100 Mg Tablet) 100 mg PO DAILY [facility] Last Admin: 09/07/23 08:49 Dose: 100 mg Documented By: NAKIA Labs 09/04/23 05:49 09/07/23 05:12 Labs: Laboratory Results - last 24 hr 09/07/23 05:12 Hold Purple Top SEE NOTE PT 22.9 H INR 1.9 H Anion Gap 15 Estim Creat Clear Calc 176.1 Estimated GFR > 60 Random Glucose 75 Calcium 8.1 L Total Bilirubin 14.1 H Direct Bilirubin 10.9 H AST 156 H ALT 26 Alkaline Phosphatase 192 H Total Protein 5.9 L Albumin 2.6 L Assessment and Plan (1) Alcohol withdrawal: Status: Acute (2) Pneumonia: Status: Acute (3) Alcohol dependence: Status: Acute (4) Alcoholic hepatitis: Status: Acute Plan 47M PMH etoh dependence, htn, hld, anxiety presented with ams, jaundice Acute metabolic encephalopathy due to acute hepatic encephalopathy inpatient with acute alcoholic hepatitis complicated by alcohol withdrawal Mentation back to baseline trending down Bili and INR Continue prednisolone 40 mg daily high protein diet, ensure added Lille score of 0.55 at day 7, poor response to steroids Pending transfer for [facility] transplant team continue phenobarb GI following RLL Pneumonia on CXR on Abx of Doxy Elevated INR improved to 1.9 after 2 doses Vit K give Vit K for 3 days protein shakes htn clonidine mild intermittent ashtma stable dvt prophylaxis - mechanical due to coagulopathy full code reason for continued hospitalization: following LFT pending transfer to [facility]. Quality Stroke Does the patient have a stroke diagnosis?: No VTE Prior VTE?: No VTE Risk Level:: Medical - moderate - high VTE Device Contraindication: Treatment Not Indicated VTE Drug Contraindication: N/A - Med Ordered
--- NOTE | 2023-09-07 13:36 | PM.DS ---
DS: Providers Provider Date of Service: 09/07/23 Date of admission: 09/01/23 21:41 Primary care physician: Marquise Fernando MD Consults: 09/01/23 21:41 Addiction Medicine Routine Consulting Provider: Addiction Covering Reason for consultation: etoh dependence Consult to Gastroenterology Routine Consulting Provider: Yecenia Yang Reason for consultation: alcoholic hepatitis DS: Diagnosis Discharge Diagnosis (1) Alcohol withdrawal: Status: Acute (2) Pneumonia: Status: Acute (3) Alcohol dependence: Status: Acute (4) Alcoholic hepatitis: Status: Acute DS: Summary Hospital Course Hospital Course: Admission note HPI 47-year-old male with history of hyperlipidemia, hypertension, asthma, anxiety, alcohol use disorder, and umbilical hernia presented to the ED earlier today for evaluation of diffuse abdominal discomfort and bloating ongoing for about 2 weeks with constipation as well as confusion noted today by his . They have also noted increased yellowing of the eyes over the last 3 days. The patient reports that he is been drinking alcohol in excess for many years and has been trying to cut back. However he is still drinking estimated 5-6 alcoholic beverages per day though he does not measure the amount of vodka consumed. 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 Last etoh was around noon today. He does experience withdrawal symptoms including shakes but denies any history of alcohol withdrawal seizure and has never been confused prior to today following alcohol use. Denies any fevers, chills, recent illness, nausea, vomiting, tremors currently, headache, hallucinations, lightheadedness, shortness of breath, chest pain. He has not moved his bowels in 5 days. He does desire detox. On arrival, pt tachcyardic to 120, vitals otherwise stable. MIld leukocytosis 11.3. Mild normocytic anemia H/H 11.8/32.7%. Renal function/lytes normal except chloride 92. Total bili 8.9, direct bili 7.2, AST 176, ALT 22. Alk phos 251. Ammonia 66. Ethyl etoh 406. Head CT negative for any acute intracranial abnormality. CT abdomen/pelvis shows chronic appearing changes with enlarged liver and marked areas of fatty infiltration admixed with areas of probable confluence scarring but no definitive mass lesion superimposed on the chronic changes. No biliary ductal dilatation. Incidentally seen is patchy airspace disease in the right greater than left lung bases possibly related to atelectasis versus infectious etiology. Hospital course # Acute metabolic encephalopathy due to acute hepatic encephalopathy inpatient with acute alcoholic hepatitis complicated by alcohol withdrawal Mentation improved back to baseline as he was treated with phenobarbital protocol for withdrawal. Both Bilirubin and INR were trending up from 8.8 on admission to 15.3 on day 6. on day 7 Bilirubin went down to 14. and INR improved to 1.9 after 2 days of IV Vitamin K. GI team was following; Dr Yang. Started on Prednisolone 40 mg daily , IV fluids, high protein diet but Lille score remained elevated of 0.55 at day 7, Pending transfer for [facility] transplant team as i spoke with dr Betancourt accepted the patient. Was noted to have mild ascites. started on small dose Spironolactone with good response as an US did not show significant ascites to drain. dose increase to 25 mg daily for lower extremities swelling. # RLL Pneumonia Noted to have infiltrates on CXR. Started on Doxycycline and Ceftriaxone. # Elevated INR 2/2 liver injury improved to 1.9 after 2 doses Vit K. Planned to give Vit K for 3 days Time Attestation Discharge coordination time: Greater than 30 minutes Quality: Safe Use of Opioids Does Pt have an Active Cancer Diagnosis on the Problem List?: No Quality: Stroke Does the patient have a stroke diagnosis?: No Physical Exam Vital Signs: Vital Signs: Last Vital Signs Temp 98.4 F 09/07/23 07:34 Pulse 100 09/07/23 07:34 Resp 16 09/07/23 07:34 BP 108/60 09/07/23 07:34 Pulse Ox 92 09/07/23 07:34 O2 Del Method Room Air 09/07/23 07:34 O2 Flow Rate 2 09/02/23 07:25 BMI result Body Mass Index 28.7 Const: Other: Constitutional : Awake, interactive, Jaundice, not in distress Neck : Normal inspection, Supple Cardiovascular : RRR, no JVP, +1 bilateral lower extremity edema Respiratory : good bilateral air entry, RLL basal fine crackles, wheezes or rhonchi Gastrointestinal: soft, lax, Normal bowel sounds, Non tender, mildly distended, no ascites Skin : Warm, Dry Neurological : Alert & oriented x3, No focal deficit DS: Data Data Completed and Pending Labs on day of discharge: Laboratory Results - last 24 hr 09/07/23 05:12 Hold Purple Top SEE NOTE PT 22.9 H INR 1.9 H Sodium 131 L Potassium 3.7 Chloride 92 L Carbon Dioxide 28 Anion Gap 15 BUN 10 Creatinine 0.60 Estim Creat Clear Calc 176.1 Estimated GFR > 60 Random Glucose 75 Calcium 8.1 L Total Bilirubin 14.1 H Direct Bilirubin 10.9 H AST 156 H ALT 26 Alkaline Phosphatase 192 H Total Protein 5.9 L Albumin 2.6 L Preliminary micro results at discharge 09/03/23 05:48 Blood Culture - Preliminary Blood - Venous No growth after 48 hours. 09/03/23 05:52 Blood Culture - Preliminary Blood - Venous No growth after [address] scan - abdomen: Radiologist's impression: ITS Impressions Abdomen/Pelvis CT 09/01/23 19:54 IMPRESSION: Chronic appearing changes as described above. I do not appreciate any acute intra-abdominal process. Patchy airspace disease in the right greater than left lung bases could be seen in the setting of atelectasis or infectious etiology. Head CT 09/01/23 19:54 IMPRESSION: No acute intracranial process seen. Chest X-Ray 09/01/23 22:10 IMPRESSION: Right lung base patchy consolidative opacities may reflect atelectasis versus evolving infectious/inflammatory etiology. Chest X-Ray 09/02/23 20:32 IMPRESSION: Echogenic bile with mild wall thickening and adjacent free fluid/ascites. Heterogeneous echogenic liver difficult to penetrate but no obvious focal lesion seen. There is small amount of free fluid in the right upper quadrant. Hepatopedal flow seen in portal vein. Right lower lobe consolidation/atelectasis. There is platelike atelectasis in the lingula and left lower lobe. Abdomen Ultrasound 09/02/23 21:25 IMPRESSION: Echogenic bile with mild wall thickening and adjacent free fluid/ascites. Heterogeneous echogenic liver difficult to penetrate but no obvious focal lesion seen. There is small amount of free fluid in the right upper quadrant. Hepatopedal flow seen in portal vein. Right lower lobe consolidation/atelectasis. There is platelike atelectasis in the lingula and left lower lobe. Abdomen Ultrasound Limited 09/06/23 09:15 IMPRESSION: Insufficient amount of ascites for safe paracentesis. Estimated last than 1 L. Paracentesis will be postponed until there is adequate amount of ascites for safe a procedure. Discharge Plan Discharge Anticipated Discharge Date/Time: 09/04/23 10:44 Patient Disposition: Home, Self-Care Discharge Diagnosis: Alcoholic hepatitis Alcohol withdrawal Referrals: Marquise Fernando MD [Primary Care Provider] - 1 Week Discharge Medications: New doxycycline monohydrate 100 mg capsule 100 mg PO BID Qty: 10 0RF cefuroxime axetil 500 mg tablet 500 mg PO BID Qty: 10 0RF thiamine HCl (vitamin B1) [Vitamin B-1] 50 mg tablet 100 mg PO DAILY Qty: 60 0RF prednisolone 5 mg tablet See Taper PO DAILY Qty: 147 0RF Taper: Prednisone 40 mg daily for 7 Days and 0 Hour 30 mg daily for 7 Days and 0 Hour 20 mg daily for 7 Days and 0 Hour 10 mg daily for 7 Days and 0 Hour 5 mg every other day for 7 Days and 0 Hour spironolactone 25 mg Tablet 25 mg PO DAILY Qty: 30 0RF Protocol: Hold for SBP< HOLD for SBP < : 90 Continued clonidine HCl 0.2 mg tablet 0.2 mg PO BID lorazepam [Ativan] 0.5 mg tablet 0.5 mg PO BID Discharge Orders: Discharge Order (Routine); Ordered 09/07/23 Ordered By: Gary Marquez Diet: Advance to usual diet Activity on Discharge: As tolerated Stand Alone Forms: Patient Portal Discharge page, Work/School Release Care Plan Goals: Read below Health Concerns: Read below Plan of Treatment: Read below Assessment: Transfer to [facility] for further work up.
[2023-09-07] MEDS: hydrOXYzine HCL 25 MG TABLET PO (14:20)
[2023-09-07 15:44] VITALS: BP 112/66; PULSE 108; RESP 18; TEMP 36.5; O2SAT 95
== END 2023-09-07 17:54 | disposition short-term general hospital (02) | DRG 280 ==
LOC: HO.ED 21:00 → HO.EDOVER 21:56 → HO.S3 09-02 01:39
PROVIDERS: Internal Medicine; Physician Assistant Medical; Student in an Organized Health Care Education/Training Program; Admitting Provider Physician Assistant; Emergency Provider Internal Medicine; PCP Internal Medicine; Visit Provider Student in an Organized Health Care Education/Training Program
DX: K70.10 Alcoholic hepatitis without ascites (principal); G93.41 Metabolic encephalopathy; J18.9 Pneumonia, unspecified organism; D68.4 Acquired coagulation factor deficiency; K76.82 Hepatic encephalopathy; D64.9 Anemia, unspecified; E78.5 Hyperlipidemia, unspecified; F41.9 Anxiety disorder, unspecified; F10.239 Alcohol dependence with withdrawal, unspecified; K59.00 Constipation, unspecified; J45.20 Mild intermittent asthma, uncomplicated; J98.11 Atelectasis; Y90.8 Blood alcohol level of 240 mg/100 ml or more; K42.9 Umbilical hernia without obstruction or gangrene; Z79.899 Other long term (current) drug therapy
CPT/HCPCS: 36415; 70450; 71045; 74177; 76705; 80048; 80076; 80307; 81001; 82140; 83615; 83690; 83735; 85025; 85027; 85610; 87040; 93306; 99285; J0696; J2560; J2920; J3411; J3430; P9047; Q9957; Q9967

== ENCOUNTER 2023-09-01 21:41 | Outpatient (BNV) | payer BC, SELFPAY | END 2023-09-06 07:00 | PROVIDERS: Admitting Provider Physician Assistant; Emergency Provider Internal Medicine; PCP Internal Medicine; Visit Provider Internal Medicine | DX: R00.0 Tachycardia, unspecified (principal) | CPT/HCPCS: 93306 ==

== ENCOUNTER 2023-09-01 21:41 | Outpatient (BNV) | payer BC, SELFPAY | END 2023-09-06 08:00 | PROVIDERS: Admitting Provider Physician Assistant; Emergency Provider Internal Medicine; PCP Internal Medicine; Visit Provider Radiology Diagnostic Radiology | DX: R18.8 Other ascites (principal) | CPT/HCPCS: 76705 ==

== ENCOUNTER → 2023-09-01 21:41 | Outpatient (BNV) | payer BC, SELFPAY | PROVIDERS: Admitting Provider Physician Assistant; Emergency Provider Internal Medicine; PCP Internal Medicine; Visit Provider Physician Assistant | DX: F10.939 Alcohol use, unspecified with withdrawal, unspecified (principal); J18.9 Pneumonia, unspecified organism; K70.10 Alcoholic hepatitis without ascites; G93.41 Metabolic encephalopathy | CPT/HCPCS: 99223; 99233; 99499 ==

== ENCOUNTER → 2023-09-01 21:41 | Outpatient (BNV) | payer BC, SELFPAY | PROVIDERS: Admitting Provider Physician Assistant; Emergency Provider Internal Medicine; PCP Internal Medicine; Visit Provider Internal Medicine | DX: F10.20 Alcohol dependence, uncomplicated (principal); K70.10 Alcoholic hepatitis without ascites | CPT/HCPCS: 99223; 99232; 99233 ==